=== PATIENT | male | born 1990 | race Caucasian/White ===

== ENCOUNTER 2019-08-31 10:32 | Emergency (ER) | payer OTHER, SELFPAY ==
[2019-08-31 10:44] VITALS: BP 114/74; PULSE 79; RESP 15; TEMP 36.9; O2SAT 100; BMI 17.9
[2019-08-31 11:44] LABS: Add Manual Diff / Slide Review NO; Basophils Absolute Auto 100 /uL (0-100); Basophils Percent Auto 0.9 % (0-2); Eosinophils Absolute Auto 0 /uL (0-450); Eosinophils Percent Auto 0.4 % (2-4); Hematocrit 44.8 % (41-53); Lymphocytes Absolute Auto 1800 /uL (1100-4500); Lymphocytes Percent Auto 30.4 % (25-40); Mean Corpuscular HGB Conc 35.7 % (30-36); Mean Corpuscular Hemoglobin 32.2 PG (26-34); Mean Corpuscular Volume 90.3 fL (80-100); Monocytes Absolute Auto 500 /uL (0-900); Monocytes Percent Auto 8.8 % (3-14); Neutrophils Absolute Auto 3600 /uL (1500-7000); Neutrophils Percent Auto 59.5 % (50-75); Platelet Count 188 X10^3/uL (150-400); Red Blood Cell Count 4.96 X10^6/uL (4.5-5.9); Red Cell Distribution Width 13.7 % (11.6-14.8)
[2019-08-31] MEDS: SODIUM CHLORIDE 0.9% 1,000 ML 1000 ML IV (11:44)
[2019-08-31] MEDS: ONDANSETRON 4 MG/2 ML INJ IV (11:44)
[2019-08-31 11:50] LABS: Prothrombin Time 11.2 SECONDS (10.1-12.7)
[2019-08-31 11:52] LABS: PTT Partial Thromboplastin Tim 34 SECONDS (26.4-36.2)
[2019-08-31 11:54] LABS: Alanine Aminotransferase 23 IU/L (21-72); Albumin 4.7 g/dL (3.5-5.0); Albumin Globulin Ratio 1.5 (1.0-2.8); Alkaline Phosphatase 68 U/L (38-126); Aspartate Aminotransferase 33 IU/L (17-59); Bilirubin Total 1.6 mg/dL (0.2-1.3); Blood Urea Nitrogen 7 mg/dL (9-20); Calcium 9.8 mg/dL (8.4-10.2); Carbon Dioxide 28 mmol/L (22-32); Chloride 103 mmol/L (98-107); Estimated Glomerular Filt Rate > 60.0 mL/min (>60); Globulin 3.2 g/dL (1.7-4.1); Glucose 87 mg/dL (70-100); HEMOLYSIS < 15 (0-50); Lipase 116 U/L (23-300); Sodium 142 mmol/L (137-145); Total Protein 7.9 g/dL (6.3-8.2)
[2019-08-31 12:03] LABS: Amylase 142 U/L (30-110)
--- NOTE | 2019-08-31 12:13 | ED_ITS ---
HPI - Abdominal Pain <CHICO Vega-BC - Last Filed: 08/31/19 16:39> General Chief Complaint: Abdominal Pain Stated Complaint: ABDOMINAL PAIN,NAUSEA Time Seen by Provider: 08/31/19 11:36 Source: patient Mode of arrival: Ambulatory Limitations: no limitations History of Present Illness HPI narrative: The patient is a 28-year-old male nonsmoker with history of ?stomach issues who presents with a chief complaint of left upper quadrant pain that started at 3:57 a.m. this morning. Patient states that he has a long history of stomach issues, has had multiple CTs with no definitive diagnosis. Has had an endoscopy. Patient states that he took Zofran this morning. Patient does not want narcotics. States that the pain is worse with eating. States that he had a gallbladder examination a few months ago. Does endorse some dysuria urgency and frequency. States prone to bladder infections. Patient is transgender and states that he has history of bilateral mastectomy, but still has a uterus. Denies any possibility of . Endorses diarrhea today. Related Data Home Medications Medication Instructions Recorded Confirmed clindamycin-benzoyl peroxide 1 applic TOPICAL DIRECTED 08/31/19 08/31/19 multivitamin 1 tab PO DAILY 08/31/19 08/31/19 testosterone [Fortesta] 1 pump TRANSDERMAL QPM 08/31/19 08/31/19 Previous Rx's Medication Instructions Recorded ketorolac 10 mg PO TID #30 tab 08/31/19 ondansetron 4 mg PO Q6H PRN #20 tab 08/31/19 Allergies Allergy/AdvReac Type Severity Reaction Status Date / Time fluoxetine [From [facility]] Allergy Verified 08/31/19 10:44 Penicillins Allergy Verified 08/31/19 10:44 Review of Systems <URIEL VegaBC - Last Filed: 08/31/19 16:39> Review of Systems Narrative: GENERAL: Denies chills, fatigue, malaise, fever, sweats. HEENT: Denies sinus pain, ear pain, sore throat, difficulty swallowing, dizziness. RESPIRATORY: Denies dyspnea, cough, wheezing, hemoptysis, sputum. CARDIOVASCULAR: Denies chest pain, palpitations, orthopnea, edema, GASTROINTESTINAL: See HPI : Denies dysuria, frequency, incontinence, hematuria, urinary retention. MUSCULOSKELETAL: denies weakness, joint pain, or bony pain SKIN: Denies rash, skin lesions, or other NEUROLOGIC: Denies weakness, headache, numbness, change in speech, confusion, seizures, incoordination. PSYCHIATRIC: No concerning psychosocial issues. 12 point review of systems is negative except for those stated above PFSH <CORTNEY Vega - Last Filed: 08/31/19 16:39> Surgical History (Updated 08/31/19 @ 12:15 by CORTNEY Vega) History of mastectomy (Acute) Social History Smoking Status: Never smoker Social History Smoking Status: Never smoker Exam <CORTNEY Vega - Last Filed: 08/31/19 16:39> Narrative Exam Narrative: GENERAL: This is a well-nourished, well-developed patient, appears uncomfortable HEAD: Atraumatic. Normocephalic. No temporal or scalp tenderness. EYES: Pupils equal round and reactive. Extraocular motions intact. No scleral icterus. No injection or drainage. ENT: Nose without bleeding, purulent drainage or septal hematoma. Throat without erythema, tonsillar hypertrophy or exudate. Uvula midline. Airway patent. NECK: Trachea midline. No JVD or lymphadenopathy. Supple, nontender, no men ingeal signs. CARDIOVASCULAR: Regular rate and rhythm without murmurs, gallops, or rubs. RESPIRATORY: Clear to auscultation. Breath sounds equal bilaterally. No wheezes, rales, or rhonchi. No cough. No increased respiratory effort. No accessory muscle use. GASTROINTESTINAL: Abdomen soft, slight tender to palpation left upper quadrant, nondistended. No hepato-splenomegaly, or palpable masses. No guarding. Active bowel sounds all 4 quadrants negative Sullivan sign. EXTREMITIES: No clubbing, cyanosis, or edema. No joint tenderness, effusion, or edema noted. BACK: Nontender without deformity or crepitance. No flank tenderness. NEURO: AOx3. SKIN: No rash or erythema. Initial Vital Signs Initial Vital Signs: Vital Signs Temperature 98.4 F 08/31/19 10:44 Pulse Rate 79 08/31/19 10:44 Respiratory Rate 15 09/30/19 10:44 Blood Pressure 114/74 08/31/19 10:44 Pulse Oximetry 100 08/31/19 10:44 <Sophia Quiñones DO - Last Filed: 09/03/19 07:06> Initial Vital Signs Initial Vital Signs: Vital Signs Temperature 98.4 F 08/31/19 10:44 Pulse Rate 79 08/31/19 10:44 Respiratory Rate 15 08/31/19 10:44 Blood Pressure 114/74 08/31/19 10:44 Pulse Oximetry 100 08/31/19 10:44 Course <CHICO Vega-CALEB - Last Filed: 08/31/19 16:39> Orders Ordered: Discontinued Medications Sodium Chloride (Normal Saline 0.9%) 1,000 mls @ 1,000 mls/hr IV BOLUS ONE Stop: 08/31/19 12:38 Last Infusion: 08/31/19 12:52 Dose: 0 mls/hr Documented by: Admin: 08/31/19 11:44 Dose: 1,000 mls/hr Documented by: ABIGAIL Ketorolac Tromethamine (Toradol) 30 mg IV NOW ONE Stop: 08/31/19 14:51 Last Admin: 08/31/19 15:10 Dose: 30 mg Documented by: ABIGAIL Ondansetron HCl (Zofran) 4 mg IV NOW ONE Stop: 08/31/19 11:40 Last Admin: 08/31/19 11:44 Dose: 4 mg Documented by: ABIGAIL Vital Signs Vital signs: Vital Signs - 8 hr 08/31/19 10:44 08/31/19 14:21 08/31/19 15:55 Temperature 98.4 F Pulse Rate 79 70 65 Respiratory Rate 15 14 12 Blood Pressure 114/74 Blood Pressure [Left Arm] 107/59 L 110/62 Pulse Oximetry 100 100 98 <Sophia Quiñones DO - Last Filed: 09/03/19 07:06> Orders Ordered: Discontinued Medications Sodium Chloride (Normal Saline 0.9%) 1,000 mls @ 1,000 mls/hr IV BOLUS ONE Stop: 08/31/19 12:38 Last Infusion: 08/31/19 12:52 Dose: 0 mls/hr Documented by: Admin: 08/31/19 11:44 Dose: 1,000 mls/hr Documented by: ABIGAIL Ketorolac Tromethamine (Toradol) 30 mg IV NOW ONE Stop: 08/31/19 14:51 Last Admin: 08/31/19 15:10 Dose: 30 mg Documented by: ABIGAIL Ondansetron HCl (Zofran) 4 mg IV NOW ONE Stop: 08/31/19 11:40 Last Admin: 08/31/19 11:44 Dose: 4 mg Documented by: ABIGAIL Vital Signs Vital signs: Vital Signs - 8 hr 08/31/19 10:44 08/31/19 14:21 08/31/19 15:55 Temperature 98.4 F Pulse Rate 79 70 65 Respiratory Rate 15 14 12 Blood Pressure 114/74 Blood Pressure [Left Arm] 107/59 L 110/62 Pulse Oximetry 100 100 98 MDM - Abdominal Pain <CHICO Vega- - Last Filed: 08/31/19 16:39> Lab Data Result diagrams: 08/31/19 11:34 08/31/19 11:34 Labs: Lab Results 08/31/19 08/31/19 08/31/19 Range/Units 11:30 11:34 11:34 WBC 6.0 (4.5-11.0) X10^3/uL RBC 4.96 (4.5-5.9) X10^6/uL Hgb 16.0 (13.5-17.5) g/dL Hct 44.8 (41-53) % MCV 90.3 (80-100) fL MCH 32.2 (26-34) PG MCHC 35.7 (30-36) % RDW 13.7 (11.6-14.8) % Plt Count 188 (150-400) X10^3/uL Neut % (Auto) 59.5 (50-75) % Lymph % (Auto) 30.4 (25-40) % Yell % (Auto) 8.8 (3-14) % Eos % (Auto) 0.4 L (2-4) % Baso % (Auto) 0.9 (0-2) % Neut # (Auto) 3600 (1659-7777) /uL Lymph # (Auto) 1800 (0648-1274) /uL Yell # (Auto) 500 (0-900) /uL Eos # (Auto) 0 (0-450) /uL Baso # (Auto) 100 (0-100) /uL PT 11.2 (10.1-12.7) SECONDS INR 1.0 (0.9-1.3) APTT 34 (26.4-36.2) SECONDS Sodium (137-145) mmol/L Potassium (3.4-5.1) mmol/L Chloride (98-107) mmol/L Carbon Dioxide (22-32) mmol/L BUN (9-20) mg/dL Creatinine (0.66-1.25) mg/dL Estimated GFR (>60) mL/min BUN/Creatinine Ratio (6-22) Glucose (70-100) mg/dL Calcium (8.4-10.2) mg/dL Total Bilirubin (0.2-1.3) mg/dL AST (17-59) IU/L ALT (21-72) IU/L Alkaline Phosphatase (38-126) U/L Total Protein (6.3-8.2) g/dL Albumin (3.5-5.0) g/dL Globulin (1.7-4.1) g/dL Albumin/Globulin Ratio (1.0-2.8) Amylase 142 H (30-110) U/L Lipase (23-300) U/L 08/31/19 Range/Units 11:34 WBC (4.5-11.0) X10^3/uL RBC (4.5-5.9) X10^6/uL Hgb (13.5-17.5) g/dL Hct (41-53) % MCV (80-100) fL MCH (26-34) PG MCHC (30-36) % RDW (11.6-14.8) % Plt Count (150-400) X10^3/uL Neut % (Auto) (50-75) % Lymph % (Auto) (25-40) % Yell % (Auto) (3-14) % Eos % (Auto) (2-4) % Baso % (Auto) (0-2) % Neut # (Auto) (0338-6082) /uL Lymph # (Auto) (8462-5404) /uL Yell # (Auto) (0-900) /uL Eos # (Auto) (0-450) /uL Baso # (Auto) (0-100) /uL PT (10.1-12.7) SECONDS INR (0.9-1.3) APTT (26.4-36.2) SECONDS Sodium 142 (137-145) mmol/L Potassium 4.0 (3.4-5.1) mmol/L Chloride 103 (98-107) mmol/L Carbon Dioxide 28 (22-32) mmol/L BUN 7 L (9-20) mg/dL Creatinine 0.70 (0.66-1.25) mg/dL Estimated GFR > 60.0 (>60) mL/min BUN/Creatinine Ratio 10.0 (6-22) Glucose 87 (70-100) mg/dL Calcium 9.8 (8.4-10.2) mg/dL Total Bilirubin 1.6 H (0.2-1.3) mg/dL AST 33 (17-59) IU/L ALT 23 (21-72) IU/L Alkaline Phosphatase 68 (38-126) U/L Total Protein 7.9 (6.3-8.2) g/dL Albumin 4.7 (3.5-5.0) g/dL Globulin 3.2 (1.7-4.1) g/dL Albumin/Globulin Ratio 1.5 (1.0-2.8) Amylase (30-110) U/L Lipase 116 (23-300) U/L Point of care testing: Point of Care Testing Test Results Negative Urine Dip Bedside Urine Glucose Negative Bedside Urine Bilirubin - Negative Bedside Urine Ketone - Negative Urine Specific [place] 1.015 Bedside Urine Occult Blood - Negative Bedside Urine pH 7.0 Bedside Urine Protein - Negative Bedside Urine Urobilinogen - Negative Bedside Urine Nitrite - Negative Bedside Urine Leukocytes - Negative Esterase Imaging Data US - abdomen: Radiologist's impression: [address] [address] Ultrasound Report Signed Patient: Tuan Orellana [facility]#: [id number] : 9Acct:[id number] Age/Sex: 82 / MDate of Service: 08/31/19 Loc: ED Accession Number: [id number] Procedure: US abdomen limited Ordering Provider: Akua Ladd PROCEDURE: US ABDOMEN LIMITED INDICATIONS: LEFT LOWER QUADRANT PAIN WITH ACTIVITY; POSSIBLE HERNIA TECHNIQUE: Real-time focused scanning was performed of the abdomen, with image documentation. COMPARISON: None. FINDINGS: Targeted sonographic imaging at the site of the patient's area of concern was performed within the left lower quadrant. No cystic or solid abnormality is identified within this region. No bowel or large fat containing mesenteric hernias are appreciated. No enlarged lymph nodes are identified. IMPRESSION: No evidence of a hernia within the left lower quadrant. Dictated by: Dm Patel M.D. on 08/31/2019 at 12:17 Approved by: Dm Patel M.D. on 08/31/2019 at 12:17 CT scan - abdomen: Radiologist's impression: [address] [address] [address] Scan Report Signed Patient: Ernesto Toribio [facility]#: [id number] : 1990Acct:[id number] Age/Sex: MDate of Service: 08/31/19 Loc: ED Accession Number: [id number] Procedure: CT abdomen pelvis w con Ordering Provider: Akua Ladd PROCEDURE: CT ABDOMEN PELVIS W CON INDICATIONS: Left flank pain for a few weeks TECHNIQUE: After the administration of intravenous contrast, 5 mm thick sections acquired from the diaphragms to the symphysis. 5 mm thick coronal and sagittal reformats were performed. For radiation dose reduction, the following was used: automated exposure control, adjustment of mA and/or kV according to patient size. COMPARISON: None. FINDINGS: Image quality: Excellent. ABDOMEN: Lung bases: Lung bases are clear. Heart size is normal. Solid organs: Liver is normal in size and enhancement. Diffuse fatty infiltration of the liver. Gallbladder is within normal limits. Biliary system is non-dilated. Pancreas enhances normally. Spleen is normal in size and enhancement. No adrenal nodules. Kidneys are normal in size and enhancement, without hydronephrosis. Peritoneum and bowel: Stomach, small bowel, and colon loops are normal in caliber and wall thickness. No free fluid or air. Nodes and vessels: No retroperitoneal or mesenteric adenopathy. Aorta and i nferior vena cava are normal in caliber. Miscellaneous: No ventral hernias. PELVIS: Genitourinary: Bladder wall thickness is normal. 3.2 cm right adnexal cyst. Miscellaneous: No inguinal hernias or adenopathy. Bones: No suspicious bony lesions. No vertebral body compression fractures. Approximate 12? of convex left lumbar spine curvature. IMPRESSION: 1. 3.2 cm left adnexal cyst. Recommend pelvic ultrasound for definitive characterization and to exclude ovarian torsion. 2. Mild convex left lumbar spine scoliosis. 3. Mild hepatic steatosis. 4. No free fluid or free air. 5. No dilated loops of bowel. Dictated by: Saloni Escalante MD, PhD on 08/31/2019 at 13:18 Approved by: Saloni Escalante MD, PhD on 08/31/2019 at 13:30 [facility] Narrative Medical decision making narrative: The patient is a 28-year-old male who presents with a chief complaint of left-sided abdominal pain. Given the patient's pain and guarding on exam, I did obtain a CT scan was illustrated an adnexal cyst as the patient is a female to male transgender individual. Ultrasound ruled out ovarian torsion. The patient has normal UA, no leukocytosis. Has been afebrile nontoxic appearing throughout his stay in the emergency department. CT scan was used to rule out small-bowel obstruction diverticulitis appendicitis etc. It is reassuring that the patient does not have any signs of systemic illness. Encourage PCP follow-up. Given prescription of Toradol as well as Zofran. Discussed coming back to the emergency department for any acute concerns such as chest pain, shortness of breath etc. Encourage PCP follow-up in the next few days. Patient has no questions or concerns states understanding of plan, return precautions and follow-up care. <Sophia Quiñones, DO - Last Filed: 09/03/19 07:06> Lab Data Labs: Lab Results 08/31/19 08/31/19 08/31/19 Range/Units 11:30 11:34 11:34 WBC 6.0 (4.5-11.0) X10^3/uL RBC 4.96 (4.5-5.9) X10^6/uL Hgb 16.0 (13.5-17.5) g/dL Hct 44.8 (41-53) % MCV 90.3 (80-100) fL MCH 32.2 (26-34) PG MCHC 35.7 (30-36) % RDW 13.7 (11.6-14.8) % Plt Count 188 (150-400) X10^3/uL Neut % (Auto) 59.5 (50-75) % Lymph % (Auto) 30.4 (25-40) % Yell % (Auto) 8.8 (3-14) % Eos % (Auto) 0.4 L (2-4) % Baso % (Auto) 0.9 (0-2) % Neut # (Auto) 3600 (0618-4392) /uL Lymph # (Auto) 1800 (2584-3363) /uL Yell # (Auto) 500 (0-900) /uL Eos # (Auto) 0 (0-450) /uL Baso # (Auto) 100 (0-100) /uL PT 11.2 (10.1-12.7) SECONDS INR 1.0 (0.9-1.3) APTT 34 (26.4-36.2) SECONDS Sodium (137-145) mmol/L Potassium (3.4-5.1) mmol/L Chloride (98-107) mmol/L Carbon Dioxide (22-32) mmol/L BUN (9-20) mg/dL Creatinine (0.66-1.25) mg/dL Estimated GFR (>60) mL/min BUN/Creatinine Ratio (6-22) Glucose (70-100) mg/dL Calcium (8.4-10.2) mg/dL Total Bilirubin (0.2-1.3) mg/dL AST (17-59) IU/L ALT (21-72) IU/L Alkaline Phosphatase (38-126) U/L Total Protein (6.3-8.2) g/dL Albumin (3.5-5.0) g/dL Globulin (1.7-4.1) g/dL Albumin/Globulin Ratio (1.0-2.8) Amylase 142 H (30-110) U/L Lipase (23-300) U/L 08/31/19 Range/Units 11:34 WBC (4.5-11.0) X10^3/uL RBC (4.5-5.9) X10^6/uL Hgb (13.5-17.5) g/dL Hct (41-53) % MCV (80-100) fL MCH (26-34) PG MCHC (30-36) % RDW (11.6-14.8) % Plt Count (150-400) X10^3/uL Neut % (Auto) (50-75) % Lymph % (Auto) (25-40) % Yell % (Auto) (3-14) % Eos % (Auto) (2-4) % Baso % (Auto) (0-2) % Neut # (Auto) (7086-0279) /uL Lymph # (Auto) (0398-3342) /uL Yell # (Auto) (0-900) /uL Eos # (Auto) (0-450) /uL Baso # (Auto) (0-100) /uL PT (10.1-12.7) SECONDS INR (0.9-1.3) APTT (26.4-36.2) SECONDS Sodium 142 (137-145) mmol/L Potassium 4.0 (3.4-5.1) mmol/L Chloride 103 (98-107) mmol/L Carbon Dioxide 28 (22-32) mmol/L BUN 7 L (9-20) mg/dL Creatinine 0.70 (0.66-1.25) mg/dL Estimated GFR > 60.0 (>60) mL/min BUN/Creatinine Ratio 10.0 (6-22) Glucose 87 (70-100) mg/dL Calcium 9.8 (8.4-10.2) mg/dL Total Bilirubin 1.6 H (0.2-1.3) mg/dL AST 33 (17-59) IU/L ALT 23 (21-72) IU/L Alkaline Phosphatase 68 (38-126) U/L Total Protein 7.9 (6.3-8.2) g/dL Albumin 4.7 (3.5-5.0) g/dL Globulin 3.2 (1.7-4.1) g/dL Albumin/Globulin Ratio 1.5 (1.0-2.8) Amylase (30-110) U/L Lipase 116 (23-300) U/L Point of care testing: Point of Care Testing Test Results Negative Urine Dip Bedside Urine Glucose Negative Bedside Urine Bilirubin - Negative Bedside Urine Ketone - Negative Urine Specific [place] 1.015 Bedside Urine Occult Blood - Negative Bedside Urine pH 7.0 Bedside Urine Protein - Negative Bedside Urine Urobilinogen - Negative Bedside Urine Nitrite - Negative Bedside Urine Leukocytes - Negative Esterase Discharge Plan Departure Patient Disposition: Home Clinical Impression: Abdominal pain Qualifiers: Abdominal location: left upper quadrant Qualified Code(s): R10.12 - Left upper quadrant pain Discharge Date/Time: 08/31/19 16:08 Instructions: DI for Ovarian Cyst, DI for Abdominal Pain-Adult Activity Restrictions/Additional Instructions: Your workup today found an ovarian cyst. Please follow up with primary care provider. You may benefit from an OBGYN referral. I have given her prescription of Toradol. Do not combine this with ibuprofen Aleve or any other NSAIDs Please use heat as needed and able. Please come back to the emergency department for any acute concerns such as chest pain, shortness of breath, and we keep down fluids etc Prescriptions: New ketorolac 10 mg tablet 10 mg PO TID Qty: 30 RF: 0 ondansetron 4 mg tablet,disintegrating 4 mg PO Q6H PRN (Reason: nausea and vomiting) Qty: 20 RF: 0 No Action clindamycin-benzoyl peroxide 1-5 % gel 1 applic TOPICAL DIRECTED RF: 0 testosterone [Fortesta] 10 mg/0.5 gram /actuation gel in metered-dose pump 1 pump transdermal QPM RF: 0 multivitamin Tablet 1 tab PO DAILY RF: 0 Referrals: Zuhair Brunner [Primary Care Provider] - Stand Alone Forms: Work Release Note
--- NOTE | 2019-08-31 13:00 | DI.CT.S_ITS ---
PROCEDURE: CT ABDOMEN PELVIS W CON INDICATIONS: Left flank pain for a few weeks TECHNIQUE: After the administration of intravenous contrast, 5 mm thick sections acquired from the diaphragms to the symphysis. 5 mm thick coronal and sagittal reformats were performed. For radiation dose reduction, the following was used: automated exposure control, adjustment of mA and/or kV according to patient size. COMPARISON: None. FINDINGS: Image quality: Excellent. ABDOMEN: Lung bases: Lung bases are clear. Heart size is normal. Solid organs: Liver is normal in size and enhancement. Diffuse fatty infiltration of the liver. Gallbladder is within normal limits. Biliary system is non-dilated. Pancreas enhances normally. Spleen is normal in size and enhancement. No adrenal nodules. Kidneys are normal in size and enhancement, without hydronephrosis. Peritoneum and bowel: Stomach, small bowel, and colon loops are normal in caliber and wall thickness. No free fluid or air. Nodes and vessels: No retroperitoneal or mesenteric adenopathy. Aorta and inferior vena cava are normal in caliber. Miscellaneous: No ventral hernias. PELVIS: Genitourinary: Bladder wall thickness is normal. 3.2 cm right adnexal cyst. Miscellaneous: No inguinal hernias or adenopathy. Bones: No suspicious bony lesions. No vertebral body compression fractures. Approximate 12? of convex left lumbar spine curvature. IMPRESSION: 1. 3.2 cm left adnexal cyst. Recommend pelvic ultrasound for definitive characterization and to exclude ovarian torsion. 2. Mild convex left lumbar spine scoliosis. 3. Mild hepatic steatosis. 4. No free fluid or free air. 5. No dilated loops of bowel. Dictated by: Saloni Escalante MD, PhD on 08/31/2019 at 13:18 Approved by: Saloni Escalante MD, PhD on 08/31/2019 at 13:30
--- NOTE | 2019-08-31 13:44 | DI.US.S_ITS ---
PROCEDURE: US PELVIC COMPLETE INDICATIONS: OVARIAN CYST RULE OUT TORSION TECHNIQUE: Real-time scanning was performed of the pelvic organs, with image documentation. Additional endovaginal scanning was necessary due to incomplete visualization of the adnexal and endometrial structures by transabdominal scanning. COMPARISON: [facility], CT, CT ABDOMEN PELVIS W CON, 08/31/2019, 13:03. FINDINGS: Transabdominal scanning: Limited scanning through the kidneys shows no hydronephrosis. No pathologic free abdominal or pelvic fluid. Endovaginal scanning: Uterus: Uterus is normal in size at 10.6 x 3.4 x 4.3 cm. The endometrium measures 5 mm in combined thickness. Ovaries: Right ovary: 3.1 x 2.3 x 2.8 cm. The right ovary contains a 3.0 x 2.2 x 2.5 cm cystic structure with mural nodularity which most likely represents a small amount of clot within the cyst. There is normal flow in the right ovary. Left ovary: 2.9 x 1.3 x 1.3 cm, with normal flow. IMPRESSION: 1. Findings are consistent with a hemorrhagic right ovarian cyst. 2. No evidence of ovarian torsion. 3. No other significant findings. Dictated by: John Sung M.D. on 08/31/2019 at 15:01 Approved by: John Sung M.D. on 08/31/2019 at 15:05
[2019-08-31 14:21] VITALS: BP 107/59; PULSE 70; RESP 14; O2SAT 100
[2019-08-31] MEDS: KETOROLAC 60 MG/2 ML VIAL 30 MG IV (15:10)
[2019-08-31 15:55] VITALS: BP 110/62; PULSE 65; RESP 12; O2SAT 98
== END 2019-08-31 16:08 | disposition home or self-care (01) ==
PROVIDERS: Emergency Medicine; Emergency Provider Nurse Practitioner Family; PCP Family Medicine
DX: R10.12 Left upper quadrant pain (principal)
CPT/HCPCS: 36415; 74177; 76830; 76856; 80053; 81003; 81025; 82150; 83690; 85025; 85610; 85730; 93005; 96361; 96374; 96375; 99283; 99285; J1885; J2405

== ENCOUNTER 2019-12-10 03:57 | Emergency (ER) | payer OTHER, SELFPAY ==
[2019-12-10 04:02] VITALS: BP 103/76; PULSE 82; RESP 20; TEMP 36.8; O2SAT 98
--- NOTE | 2019-12-10 04:10 | DI.CT.S_ITS ---
PROCEDURE: CT KIDNEY URETER BLADDER (KUB) INDICATIONS: Left sided pain ,eval for kidney stone TECHNIQUE: Noncontrast 5 mm thick sections acquired from the diaphragms to the symphysis. 5 mm thick coronal and sagittal reformats were then performed. For radiation dose reduction, the following was used: automated exposure control, adjustment of mA and/or kV according to patient size. COMPARISON: [facility], US, US PELVIC COMPLETE, 08/31/2019, 14:18. [facility], CT, CT ABDOMEN PELVIS W CON, 08/31/2019, 13:03. FINDINGS: Image quality: Excellent. Lung bases: Lung bases are clear. Heart size is normal. Urinary system: Both kidneys are normal in size. No kidney stones. No hydronephrosis or perinephric fat stranding. Both ureters appear non-dilated throughout their expected courses. Bladder wall thickness is normal; no calcified bladder stones. Other solid organs: Liver is normal in size. Gallbladder is normal. Pancreas is normal in contours. Spleen is normal in size. No adrenal nodules. Peritoneum and bowel: Unenhanced bowel loops demonstrate normal wall thickness and caliber. The appendix is not definitively identified. There is a moderate amount of stool in colon. No free fluid or air. Nodes and vessels: No retroperitoneal or mesenteric adenopathy by size criteria. Aorta and inferior vena cava are normal in caliber. Abdominal wall: No ventral hernias. Pelvis: No free pelvic fluid. No inguinal hernias or adenopathy. Uterus is normal. No adnexal mass. Bones: No suspicious bony lesions. No vertebral body compression fractures. Mild levoscoliosis which IMPRESSION: 1. No renal stone hydronephrosis. 2. No acute intra-abdominal/pelvic process. No significant discrepancy with the caustic cresylate shift superintendent radiology preliminary report. Dictated by: Doyle Torres M.D. on 12/10/2019 at 7:25 Approved by: Doyle Torres M.D. on 12/10/2019 at 7:32
[2019-12-10] MEDS: KETOROLAC 60 MG/2 ML VIAL 30 MG IV (04:16)
[2019-12-10 04:18] LABS: Appearance Urine UA CLOUDY; Bilirubin Urine UA NEGATIVE (NEGATIVE); Glucose Urine UA NEGATIVE (Negative); Ketones Urine UA NEGATIVE (NEGATIVE); Leukocyte Esterase Urine UA 2+ (NEGATIVE); Nitrite Urine UA POSITIVE (Negative); Occult Blood Urine UA 3+ (Negative); Protein Urine UA 3+ (Negative); Specific Gravity Urine UA 1.025 (1.000-1.035); pH Urine UA 6.5 (4.5-8.0)
[2019-12-10 04:20] LABS: Color Urine UA Light Brown
--- NOTE | 2019-12-10 04:29 | ED_ITS ---
HPI - General Adult General Chief complaint: Abdominal Pain Stated complaint: Painful urnination/bloody urine Time Seen by Provider: 12/10/19 03:59 Source: patient Mode of arrival: Ambulatory Limitations: no limitations History of Present Illness HPI narrative: Patient is a 29-year-old female who identifies as a male who has had a mastectomy however still is female pelvic organs here for evaluation of blood in his urine, urinary frequency, dysuria and lower back pain. No fevers. No nausea vomiting. Patient states that the pain woke him up several hours prior to arrival here in the ER. He has had a urinary tract infection in the past but that was many years ago. No history of kidney stones. Related Data Home Medications Medication Instructions Recorded Confirmed clindamycin-benzoyl peroxide 1 applic TOPICAL DIRECTED 08/31/19 08/31/19 multivitamin 1 tab PO DAILY 08/31/19 08/31/19 testosterone [Fortesta] 1 pump TRANSDERMAL QPM 08/31/19 08/31/19 Previous Rx's Medication Instructions Recorded ketorolac 10 mg PO TID #30 tab 08/31/19 ondansetron 4 mg PO Q6H PRN #20 tab 08/31/19 cephalexin [Keflex] 500 mg PO BID 7 Days #13 cap 12/10/19 phenazopyridine [Pyridium] 100 mg PO TID PRN #6 tab 12/10/19 Allergies Allergy/AdvReac Type Severity Reaction Status Date / Time fluoxetine [From Prozac] Allergy Verified 08/31/19 10:44 Penicillins Allergy Verified 08/31/19 10:44 Review of Systems Constitutional Constitutional: Denies fever(s) and Denies headache(s) ENT Ears, Nose, Mouth, and Throat: Denies headache(s) Cardiovascular Cardiovascular: Denies chest pain and Denies dyspnea Respiratory Respiratory: Denies dyspnea Gastrointestinal Gastrointestinal: Reports abdominal pain, Denies change in stool character, Denies nausea and Denies vomiting Genitourinary Genitourinary: Reports hematuria, Reports dysuria, Reports urinary frequency, Reports urinary hesitancy and Reports urinary urgency Musculoskeletal Musculoskeletal: Denies arthralgias Integumentary/Breasts Skin/Breast: Denies rash Neurologic Neurologic: Denies behavioral changes and Denies headache(s) Psychiatric Psychiatric: Denies behavioral changes Hematologic/Lymphatic Hematologic/Lymphatic: Denies easy bleeding and Denies easy bruising Patient History Medical History [id number] transgender person (Inactive) Surgical History (Updated 08/31/19 @ 12:15 by CHICO Vega-) History of mastectomy (Acute) Social History Smoking Status: Never smoker Smoking Status: Never smoker Substance Use Type: does not use Exam Initial Vital Signs Initial Vital Signs: Vital Signs Temperature 98.2 F 12/10/19 04:02 Pulse Rate 82 12/10/19 04:02 Respiratory Rate 20 12/10/19 04:02 Blood Pressure 103/76 12/10/19 04:02 Pulse Oximetry 98 12/10/19 04:02 Const General: cooperative, comfortable and well developed Limitations: mental status not altered HENMT Head: normal to inspection and normocephalic Resp Effort & Inspection: normal respiratory effort Auscultation: clear to auscultation bilaterally Cardio Rate: regular rate Rhythm: regular rhythm GI Inspection: non-distended Palpation: soft, No firm and tender (Lower abdomen) Back/Spine/Pelvis Back: No CVA tenderness Skin Lesions: no lesions Rashes: no rashes Neuro General: alert and awake Cognition: normal cognition Speech: speech normal Extrem General: normal to inspection and capillary refill normal Psych Appearance: grossly normal and well kempt Course Orders Ordered: ED Orders 12/10/19 04:05 Urinalysis and Microscopic Stat Urine Culture Stat 12/10/19 04:10 CT kidney ureter bladder (KUB) Stat 12/10/19 04:15 Basic Metabolic Panel Stat Complete Blood Count AUTO DIFF Stat HCG Quantitative Stat Discontinued Medications Cephalexin HCl (Keflex) 500 mg PO NOW ONE Stop: 12/10/19 05:23 Last Admin: 12/10/19 05:25 Dose: 500 mg Documented by: CARRIE Ketorolac Tromethamine (Toradol) 30 mg IV NOW ONE Stop: 12/10/19 04:10 Last Admin: 12/10/19 04:16 Dose: 30 mg Documented by: CARRIE Phenazopyridine HCl (Pyridium) 100 mg PO NOW ONE Stop: 12/10/19 05:23 Last Admin: 12/10/19 05:25 Dose: 100 mg Documented by: CARRIE Vital Signs Vital signs: Vital Signs - 8 hr 12/10/19 04:02 12/10/19 05:42 Temperature 98.2 F Pulse Rate 82 76 Respiratory Rate 20 18 Blood Pressure 103/76 95/70 Pulse Oximetry 98 98 Medical Decision Making Medical Records Medical records reviewed: Yes I reviewed the patient's medical records. Lab Data Lab results reviewed: Yes I reviewed the patient's lab results. Result diagrams: 12/10/19 04:15 12/10/19 04:15 Labs: Lab Results 12/10/19 12/10/19 12/10/19 Range/Units 04:05 04:15 04:15 WBC 10.8 (4.5-11.0) X10^3/uL RBC 5.30 (4.5-5.9) X10^6/uL Hgb 16.6 (13.5-17.5) g/dL Hct 48.3 (41-53) % MCV 91.2 (80-100) fL MCH 31.4 (26-34) PG MCHC 34.4 (30-36) % RDW 13.4 (11.6-14.8) % Plt Count 204 (150-400) X10^3/uL Neut % (Auto) 64.7 (50-75) % Lymph % (Auto) 28.9 (25-40) % [place] % (Auto) 4.7 (3-14) % Eos % (Auto) 1.1 L (2-4) % Baso % (Auto) 0.6 (0-2) % Neut # (Auto) 7000 (5876-6573) /uL Lymph # (Auto) 3100 (1787-3053) /uL [place] # (Auto) 500 (0-900) /uL Eos # (Auto) 100 (0-450) /uL Baso # (Auto) 100 (0-100) /uL Sodium 141 (137-145) mmol/L Potassium 4.0 (3.4-5.1) mmol/L Chloride 104 (98-107) mmol/L Carbon Dioxide 28 (22-32) mmol/L BUN 13 (9-20) mg/dL Creatinine 0.90 (0.66-1.25) mg/dL Estimated GFR > 60.0 (>60) mL/min BUN/Creatinine Ratio 14.4 (6-22) Glucose 90 (70-100) mg/dL Calcium 9.4 (8.4-10.2) mg/dL HCG, Quant (-2.40) mIU/mL Urine Color Light brown Urine Appearance Cloudy Urine pH 6.5 (4.5-8.0) Ur Specific [place] 1.025 (1.000-1.035) Urine Protein 3+ H (Negative) Urine Glucose (UA) Negative (Negative) g/dL Urine Ketones Negative (NEGATIVE) Urine Occult Blood 3+ H (Negative) Urine Nitrate Positive (Negative) Urine Bilirubin Negative (NEGATIVE) Urine Urobilinogen 1.0 (0.2) E.U./dL Ur Leukocyte Esterase 2+ H (NEGATIVE) Urine RBC >100/hpf (0-5/HPF) Urine WBC 10-30/hpf H (0-5/HPF) Urine Bacteria Moderate (10-30) H (None) Ur Culture Indicated? Specimen cultured 12/10/19 Range/Units 04:15 WBC (4.5-11.0) X10^3/uL RBC (4.5-5.9) X10^6/uL Hgb (13.5-17.5) g/dL Hct (41-53) % MCV (80-100) fL MCH (26-34) PG MCHC (30-36) % RDW (11.6-14.8) % Plt Count (150-400) X10^3/uL Neut % (Auto) (50-75) % Lymph % (Auto) (25-40) % [place] % (Auto) (3-14) % Eos % (Auto) (2-4) % Baso % (Auto) (0-2) % Neut # (Auto) (7731-0675) /uL Lymph # (Auto) (1684-9132) /uL [place] # (Auto) (0-900) /uL Eos # (Auto) (0-450) /uL Baso # (Auto) (0-100) /uL Sodium (137-145) mmol/L Potassium (3.4-5.1) mmol/L Chloride (98-107) mmol/L Carbon Dioxide (22-32) mmol/L BUN (9-20) mg/dL Creatinine (0.66-1.25) mg/dL Estimated GFR (>60) mL/min BUN/Creatinine Ratio (6-22) Glucose (70-100) mg/dL Calcium (8.4-10.2) mg/dL HCG, Quant < 2.39 (-2.40) mIU/mL Urine Color Urine Appearance Urine pH (4.5-8.0) Ur Specific [place] (1.000-1.035) Urine Protein (Negative) Urine Glucose (UA) (Negative) g/dL Urine Ketones (NEGATIVE) Urine Occult Blood (Negative) Urine Nitrate (Negative) Urine Bilirubin (NEGATIVE) Urine Urobilinogen (0.2) E.U./dL Ur Leukocyte Esterase (NEGATIVE) Urine RBC (0-5/HPF) Urine WBC (0-5/HPF) Urine Bacteria (None) Ur Culture Indicated? Imaging Data CT scan - abdomen/pelvis: Radiologist's Impression: Unremarkable noncontrast CT of abdomen and pelvis MDM Narrative Medical decision making narrative: Urinalysis nitrite positive. Consistent with a urinary tract infection. CT scan shows no signs of kidney stone. She is afebrile. Does not have an elevated white blood cell count. Does not have CVA tenderness. No nausea and vomiting. Suspect this is a lower UTI. Was given 1st dose of antibiotics here in the ER with Pyridium for symptom control. Sent home with a prescription for these medications. Was given return precautions an d follow-up instructions. Expressed understanding and agreement with plan. Discharge Plan Departure Patient Disposition: Home Clinical Impression: Urinary tract infection Qualifiers: Urinary tract infection type: acute cystitis Hematuria presence: with hematuria Qualified Code(s): N30.01 - Acute cystitis with hematuria Discharge Date/Time: 12/10/19 05:44 Instructions: DI for Urinary Tract Infection (UTI) Activity Restrictions/Additional Instructions: Take the antibiotics as directed. The peridium you can use as needed for discomfort with urination. Contact your primary provider for follow-up. Return to the emergency department for any new or worsening symptoms Prescriptions: New phenazopyridine [Pyridium] 100 mg tablet 100 mg PO TID PRN (Reason: pain) Qty: 6 RF: 0 cephalexin [Keflex] 500 mg capsule 500 mg PO BID 7 Days Qty: 13 RF: 0 No Action clindamycin-benzoyl peroxide 1-5 % gel 1 applic TOPICAL DIRECTED RF: 0 testosterone [Fortesta] 10 mg/0.5 gram /actuation gel in metered-dose pump 1 pump transdermal QPM RF: 0 multivitamin Tablet 1 tab PO DAILY RF: 0 ketorolac 10 mg tablet 10 mg PO TID Qty: 30 RF: 0 ondansetron 4 mg tablet,disintegrating 4 mg PO Q6H PRN (Reason: nausea and vomiting) Qty: 20 RF: 0 Referrals: Zuhair Brunner [Primary Care Provider] -
[2019-12-10 04:34] LABS: Bacteria Urine Moderate (10-30); Culture Indicated Urine Specimen Cultured; RBC Urine >100/HPF (0-5/HPF); WBC Urine 10-30/HPF (0-5/HPF)
[2019-12-10 04:34] LABS: Add Manual Diff / Slide Review NO; Basophils Absolute Auto 100 /uL (0-100); Basophils Percent Auto 0.6 % (0-2); Eosinophils Absolute Auto 100 /uL (0-450); Eosinophils Percent Auto 1.1 % (2-4); Hematocrit 48.3 % (41-53); Hemoglobin 16.6 g/dL (13.5-17.5); Lymphocytes Absolute Auto 3100 /uL (1100-4500); Lymphocytes Percent Auto 28.9 % (25-40); Mean Corpuscular HGB Conc 34.4 % (30-36); Mean Corpuscular Hemoglobin 31.4 PG (26-34); Mean Corpuscular Volume 91.2 fL (80-100); Monocytes Absolute Auto 500 /uL (0-900); Monocytes Percent Auto 4.7 % (3-14); Neutrophils Absolute Auto 7000 /uL (1500-7000); Neutrophils Percent Auto 64.7 % (50-75); Platelet Count 204 X10^3/uL (150-400); Red Cell Distribution Width 13.4 % (11.6-14.8); White Blood Cell Count 10.8 X10^3/uL (4.5-11.0)
[2019-12-10 04:37] LABS: BUN Creatinine Ratio 14.4 (6-22); Blood Urea Nitrogen 13 mg/dL (9-20); Calcium 9.4 mg/dL (8.4-10.2); Carbon Dioxide 28 mmol/L (22-32); Chloride 104 mmol/L (98-107); Estimated Glomerular Filt Rate > 60.0 mL/min (>60); Glucose 90 mg/dL (70-100); HEMOLYSIS 21 (0-50); Sodium 141 mmol/L (137-145)
[2019-12-10 05:11] LABS: HCG Quantitative /Beta subunit < 2.39 mIU/mL (-2.40)
[2019-12-10] MEDS: PHENAZOPYRIDINE 100 MG TABLET PO (05:25)
[2019-12-10] MEDS: cephALEXin 250 MG CAPSULE 500 MG PO (05:25)
[2019-12-10 05:42] VITALS: BP 95/70; PULSE 76; RESP 18; O2SAT 98
== END 2019-12-10 05:44 | disposition home or self-care (01) ==
PROVIDERS: Emergency Provider Emergency Medicine; PCP Family Medicine
DX: N30.01 Acute cystitis with hematuria (principal); R10.9 Unspecified abdominal pain
CPT/HCPCS: 36415; 74176; 80048; 81001; 84702; 85025; 87077; 87086; 87186; 96374; 99284; J1885

== ENCOUNTER 2019-12-31 12:34 | Emergency (ER) | payer OTHER, SELFPAY ==
[2019-12-31 13:13] VITALS: BP 112/79; PULSE 75; RESP 16; TEMP 36.7; O2SAT 99; BMI 17.9
[2019-12-31 15:46] LABS: Add Manual Diff / Slide Review NO; Basophils Absolute Auto 0 /uL (0-100); Basophils Percent Auto 0.9 % (0-2); Eosinophils Absolute Auto 0 /uL (0-450); Eosinophils Percent Auto 0.5 % (2-4); Hematocrit 46.5 % (41-53); INR 1.1 (0.9-1.3); Lymphocytes Absolute Auto 1700 /uL (1100-4500); Lymphocytes Percent Auto 31.4 % (25-40); Mean Corpuscular HGB Conc 34.4 % (30-36); Mean Corpuscular Hemoglobin 30.8 PG (26-34); Mean Corpuscular Volume 89.7 fL (80-100); Monocytes Absolute Auto 400 /uL (0-900); Monocytes Percent Auto 7.7 % (3-14); Neutrophils Absolute Auto 3300 /uL (1500-7000); Neutrophils Percent Auto 59.5 % (50-75); Platelet Count 188 X10^3/uL (150-400); Red Blood Cell Count 5.18 X10^6/uL (4.5-5.9); Red Cell Distribution Width 13.1 % (11.6-14.8); White Blood Cell Count 5.5 X10^3/uL (4.5-11.0)
[2019-12-31 15:49] LABS: PTT Partial Thromboplastin Tim 35 SECONDS (26.4-36.2)
[2019-12-31 15:50] LABS: Alanine Aminotransferase 12 IU/L (<50); Albumin 4.7 g/dL (3.5-5.0); Albumin Globulin Ratio 1.3 (1.0-2.8); Alkaline Phosphatase 57 U/L (38-126); Aspartate Aminotransferase 31 IU/L (17-59); Bilirubin Total 3.9 mg/dL (0.2-1.3); Blood Urea Nitrogen 12 mg/dL (9-20); Calcium 9.6 mg/dL (8.4-10.2); Carbon Dioxide 27 mmol/L (22-32); Chloride 101 mmol/L (98-107); Estimated Glomerular Filt Rate > 60.0 mL/min (>60); Globulin 3.5 g/dL (1.7-4.1); Glucose 125 mg/dL (70-100); HEMOLYSIS 44 (0-50); Lipase 85 U/L (23-300); Potassium 4.3 mmol/L (3.4-5.1); Sodium 138 mmol/L (137-145); Total Protein 8.2 g/dL (6.3-8.2)
--- NOTE | 2019-12-31 17:36 | DI.US.S_ITS ---
PROCEDURE: US ABDOMEN LIMITED INDICATIONS: R FLANK/RUQ PAIN, R/O HYDRONEPHROSIS AND GALLSTONES TECHNIQUE: Real-time scanning was performed of the abdominal and retroperitoneal organs, with image documentation. COMPARISON: [facility], CT, CT KIDNEY URETER BLADDER (KUB), 12/10/2019, 4:10. [facility], CT, CT ABDOMEN PELVIS W CON, 08/31/2019, 13:03. FINDINGS: Liver: Liver is normal in size and homogeneous in echotexture. Gallbladder: Nondilated. No stones or sludge. Normal gallbladder wall thickness. No pericholecystic fluid. Negative sonographic Sullivan's sign. Biliary ducts: Intrahepatic bile ducts are non-dilated. Extrahepatic bile duct caliber measures 3 mm. Normal is 6-7 mm or less in diameter, or 10 mm or less post-cholecystectomy. Pancreas: Visualized portions of the pancreas are sonographically normal. Kidneys: Kidneys are normal in size and echotexture. Right kidney measures 9.5 cm long; left kidney measures 9.4 cm long. No hydronephrosis or nephrolithiasis. No solid masses. IMPRESSION: 1. No acute cholecystitis. No gallstones. 2. No hydronephrosis. Dictated by: Derek Zurita M.D. on 12/31/2019 at 20:05 Approved by: Derek Zurita M.D. on 12/31/2019 at 20:07
--- NOTE | 2019-12-31 17:44 | ED_ITS ---
HPI - Male Genitourinary <Norma BetancourtWESTON - Last Filed: 12/31/19 21:40> General Chief complaint: Urogenital-Male Stated complaint: pain in mid back area Time Seen by Provider: 12/31/19 17:00 Source: patient Mode of arrival: Ambulatory History of Present Illness HPI Narrative: 29-year-old who has female pelvic organs but is transitioning to male, currently identifies as male, has a history of a right ovarian cyst and Gilbert's syndrome, presents to the emergency department complaining of right flank pain for the past few weeks. Patient states she was seen on 12/10/2019 and diagnosed with a urinary tract infection. She had a CT at this time that showed no renal stones or hydronephrosis. Patient was given cephalexin, she states her symptoms improved. However a week later she began to have symptoms again, she was seen at the [email or web address] [facility] and given Levaquin. She finished her last dose of Levaquin yesterday and continues to have right flank pain and nausea. Patient states he has noticed chest pressure and shortness of breath over the past week. He states this has worsened over the past few days. Patient reports the symptoms are slightly increased with exertion. Patient denies any coughing, rhinorrhea, sore throat, fevers, chills, vomiting, diarrhea, constipation, dizziness, or other concerns. Patient denies any recent long trips or history of blood clots. However, patient states he is taking testosterone. Related Data Home Medications Medication Instructions Recorded Confirmed clindamycin-benzoyl peroxide 1 applic TOPICAL DIRECTED 08/31/19 12/31/19 multivitamin 1 tab PO DAILY 08/31/19 12/31/19 testosterone [Fortesta] 1 pump TRANSDERMAL QPM 08/31/19 12/31/19 adapalene 1 applic TOPICAL BEDTIME 12/31/19 12/31/19 levofloxacin 750 mg PO DAILYX7 12/31/19 Previous Rx's Medication Instructions Recorded ketorolac 10 mg PO Q6H PRN 5 Days #14 tab 12/31/19 ondansetron 4 mg PO Q8H PRN #14 tab 12/31/19 Allergies Allergy/AdvReac Type Severity Reaction Status Date / Time fluoxetine [From Prozac] Allergy Verified 12/31/19 13:12 Penicillins Allergy Verified 12/31/19 13:12 Review of Systems <WESTON Whitman - Last Filed: 12/31/19 21:40> Review of Systems Narrative: REVIEW OF SYSTEMS: GENERAL: Denies fever, chills, malaise, or wt. loss. HENT: No head trauma, sore throat, or dysphagia. EYES: No loss of vision, double vision, eye pain, or irritation. CARDIOVASCULAR: No chest pain, palpitations, or orthopnea. RESPIRATORY: No shortness of breath or cough. GASTROINTESTINAL: Complains of nausea, see HPI. GENITOURINARY: Complains of right-sided flank pain, see HPI. MUSCULOSKELETAL: No pain, weakness, or trauma. INTEGUMENTARY: No rash, lesions, or pruritus. NEURO: No numbness, tingling, memory loss, confusion, or headaches. PSYCH: No behavior or mood changes. Patient History <WESTON Whitman - Last Filed: 12/31/19 21:40> Medical History [id number] transgender person (Inactive) Surgical History History of mastectomy (Acute) Social History Smoking Status: Never smoker Smoking Status: Never smoker Substance Use Type: does not use Exam <WESTON Whitman - Last Filed: 12/31/19 21:40> Initial Vital Signs Initial Vital Signs: Vital Signs Temperature 98.1 F 12/31/19 13:13 Pulse Rate 75 12/31/19 13:13 Respiratory Rate 16 12/31/19 13:13 Blood Pressure 112/79 12/31/19 13:13 Pulse Oximetry 99 12/31/19 13:13 PHYSICAL EXAMINATION: GENERAL: Well groomed, alert, and cooperative. Answers questions promptly and appropriately. Vital signs noted. HENT: Normocephalic, atraumatic. Hearing intact. Oral mucosa is pink and moist. EYES: Conjunctiva pink, sclera white, no periorbital swelling. CARDIOVASCULAR: S1 and S2 sounds normal. Regular rate and rhythm, no murmurs, clicks, or bruits. No pedal edema. RESPIRATORY: Normal respiratory rate, trachea midline, airway patent. No stridor, nasal flaring or accessory muscle use. Lungs are clear in all sood without wheeze, rhonchi, or crackles. No cough observed GASTROINTESTINAL: Bowel sounds normoactive. Abdomen is soft and non-tender. No organomegaly, no palpable masses. GENITALURINARY: Mild right-sided CVA tenderness. MUSCULOSKELETAL: Normal gait and coordination. Equal tone and mass bilaterally. EXTREMITIES: CMS intact, no pedal edema. SKIN: Warm, dry, soft, appropriate color for ethnicity. No lesions, rashes, or wounds to visualized areas. NEURO: Alert and Oriented X 3. Good coordination. No ataxia, or sensory deficits, or cognitive issues. PSYCH: Appropriate affect and mood. <Tuan Pena MD - Last Filed: 01/01/20 11:21> Initial Vital Signs Initial Vital Signs: Vital Signs Temperature 98.1 F 12/31/19 13:13 Pulse Rate 75 12/31/19 13:13 Respiratory Rate 16 12/31/19 13:13 Blood Pressure 112/79 12/31/19 13:13 Pulse Oximetry 99 12/31/19 13:13 Course <WESTON Whitman - Last Filed: 12/31/19 21:40> Course Course Narrative: Patient states symptoms have mildly improved throughout the emergency department stay. She was hemodynamically stable and was in no distress. Orders Ordered: ED Orders 12/31/19 15:23 Complete Blood Count AUTO DIFF Stat Comprehensive Metabolic Panel Stat D Dimer Stat Lipase Stat Partial Thromboplastin Time Stat Prothrombin Time INR Stat 12/31/19 16:57 EKG-12 Lead Stat 12/31/19 17:36 US abdomen limited Stat 12/31/19 17:48 XR chest 1V Stat Consultations Consultation #1: Patient Staffed with Dr. Pena Vital Signs Vital signs: Vital Signs - 8 hr 12/31/19 21:04 Pulse Rate 77 Blood Pressure 112/62 Pulse Oximetry 94 <Tuan Pena MD - Last Filed: 01/01/20 11:21> Orders Ordered: ED Orders 12/31/19 15:23 Complete Blood Count AUTO DIFF Stat Comprehensive Metabolic Panel Stat D Dimer Stat Lipase Stat Partial Thromboplastin Time Stat Prothrombin Time INR Stat 12/31/19 16:57 EKG-12 Lead Stat 12/31/19 17:36 US abdomen limited Stat 12/31/19 17:48 XR chest 1V Stat Vital Signs Vital signs: Vital Signs - 8 hr 12/31/19 21:04 Pulse Rate 77 Blood Pressure 112/62 Pulse Oximetry 94 MDM - Male Genitourinary <Norma BetancourtWESTON - Last Filed: 12/31/19 21:40> Medical Records Attestation: I reviewed the patient's medical records. Lab Data Attestation: I reviewed the patient's lab results. Result diagrams: 12/31/19 15:23 12/31/19 15:23 Labs: Lab Results 12/31/19 12/31/19 12/31/19 Range/Units 15:23 15:23 15:23 WBC 5.5 (4.5-11.0) X10^3/uL RBC 5.18 (4.5-5.9) X10^6/uL Hgb 16.0 (13.5-17.5) g/dL Hct 46.5 (41-53) % MCV 89.7 (80-100) fL MCH 30.8 (26-34) PG MCHC 34.4 (30-36) % RDW 13.1 (11.6-14.8) % Plt Count 188 (150-400) X10^3/uL Neut % (Auto) 59.5 (50-75) % Lymph % (Auto) 31.4 (25-40) % Moca % (Auto) 7.7 (3-14) % Eos % (Auto) 0.5 L (2-4) % Baso % (Auto) 0.9 (0-2) % Neut # (Auto) 3300 (9917-1477) /uL Lymph # (Auto) 1700 (9502-6977) /uL Moca # (Auto) 400 (0-900) /uL Eos # (Auto) 0 (0-450) /uL Baso # (Auto) 0 (0-100) /uL PT 13.0 H (10.1-12.7) SECONDS INR 1.1 (0.9-1.3) APTT 35 (26.4-36.2) SECONDS D-Dimer (<230) ng/mL Sodium 138 (137-145) mmol/L Potassium 4.3 (3.4-5.1) mmol/L Chloride 101 (98-107) mmol/L Carbon Dioxide 27 (22-32) mmol/L BUN 12 (9-20) mg/dL Creatinine 1.00 (0.66-1.25) mg/dL Estimated GFR > 60.0 (>60) mL/min BUN/Creatinine Ratio 12.0 (6-22) Glucose 125 H (70-100) mg/dL Calcium 9.6 (8.4-10.2) mg/dL Total Bilirubin 3.9 H (0.2-1.3) mg/dL AST 31 (17-59) IU/L ALT 12 (<50) IU/L Alkaline Phosphatase 57 (38-126) U/L Total Protein 8.2 (6.3-8.2) g/dL Albumin 4.7 (3.5-5.0) g/dL Globulin 3.5 (1.7-4.1) g/dL Albumin/Globulin Ratio 1.3 (1.0-2.8) Lipase 85 (23-300) U/L 12/31/19 Range/Units 15:23 WBC (4.5-11.0) X10^3/uL RBC (4.5-5.9) X10^6/uL Hgb (13.5-17.5) g/dL Hct (41-53) % MCV (80-100) fL MCH (26-34) PG MCHC (30-36) % RDW (11.6-14.8) % Plt Count (150-400) X10^3/uL Neut % (Auto) (50-75) % Lymph % (Auto) (25-40) % Moca % (Auto) (3-14) % Eos % (Auto) (2-4) % Baso % (Auto) (0-2) % Neut # (Auto) (6731-2586) /uL Lymph # (Auto) (1322-9344) /uL Moca # (Auto) (0-900) /uL Eos # (Auto) (0-450) /uL Baso # (Auto) (0-100) /uL PT (10.1-12.7) SECONDS INR (0.9-1.3) APTT (26.4-36.2) SECONDS D-Dimer < 200 (<230) ng/mL Sodium (137-145) mmol/L Potassium (3.4-5.1) mmol/L Chloride (98-107) mmol/L Carbon Dioxide (22-32) mmol/L BUN (9-20) mg/dL Creatinine (0.66-1.25) mg/dL Estimated GFR (>60) mL/min BUN/Creatinine Ratio (6-22) Glucose (70-100) mg/dL Calcium (8.4-10.2) mg/dL Total Bilirubin (0.2-1.3) mg/dL AST (17-59) IU/L ALT (<50) IU/L Alkaline Phosphatase (38-126) U/L Total Protein (6.3-8.2) g/dL Albumin (3.5-5.0) g/dL Globulin (1.7-4.1) g/dL Albumin/Globulin Ratio (1.0-2.8) Lipase (23-300) U/L Urine Dip Bedside Urine Glucose Negative Bedside Urine Bilirubin - Negative Bedside Urine Ketone - Negative Urine Specific [place] 1.015 Bedside Urine Occult Blood - Negative Bedside Urine pH 6.0 Bedside Urine Protein - Negative Bedside Urine Urobilinogen - Negative Bedside Urine Nitrite - Negative Bedside Urine Leukocytes - Negative Esterase Imaging Data Chest x-ray: Radiologist's Impression: [address] [address] XRay Report Signed Patient: Ernesto Toribio [facility]#: [id number] : 1990Acct:[id number] Age/Sex: MDate of Service: 12/31/19 Loc: ED Accession Number: [id number] Procedure: XR chest 1V Ordering Provider: Norma Betancourt PROCEDURE: XR CHEST 1V INDICATIONS: SOB TECHNIQUE: One view of the chest was acquired. COMPARISON: [facility], CT, CT KIDNEY URETER BLADDER (KUB), 12/10/2019, 4:10. [facility], US, US ABDOMEN LIMITED, 12/31/2019, 18:13. FINDINGS: Surgical changes and devices: None. Lungs and pleura: Lungs are clear. Lung volumes are prominent. No pleural effusions or pneumothorax. Mediastinum: Mediastinal contours appear normal. Heart size is normal. Bones and chest wall: No suspicious bony lesions. Overlying soft tissues appear unremarkable. IMPRESSION: No acute cardiopulmonary abnormality. Dictated by: Derek Zurita M.D. on 12/31/2019 at 20:07 Approved by: Derek Zurita M.D. on 12/31/2019 at 20:07 US-ABD: Radiologist's Impression: [address] [place] [id number] Ultrasound Report Signed Patient: Ernesto Toribio [facility]#: [id number] : 1990Acct:[id number] Age/Sex: 29 / MDate of Service: 12/31/19 Loc: ED Accession Number: [id number] Procedure: US abdomen limited Ordering Provider: Nomra Betancourt PROCEDURE: US ABDOMEN LIMITED INDICATIONS: R FLANK/RUQ PAIN, R/O HYDRONEPHROSIS AND GALLSTONES TECHNIQUE: Real-time scanning was performed of the abdominal and retroperitoneal organs, with image documentation. COMPARISON: [facility], CT, CT KIDNEY URETER BLADDER (KUB), 12/10/2019, 4:10. [facility], CT, CT ABDOMEN PELVIS W CON, 08/31/2019, 13:03. FINDINGS: Liver: Liver is normal in size and homogeneous in echotexture. Gallbladder: Nondilated. No stones or sludge. Normal gallbladder wall thickness. No pericholecystic fluid. Negative sonographic Sullivan's sign. Biliary ducts: Intrahepatic bile ducts are non-dilated. Extrahepatic bile duct caliber measures 3 mm. Normal is 6-7 mm or less in diameter, or 10 mm or less post-cholecystectomy. Pancreas: Visualized portions of the pancreas are sonographically normal. Kidneys: Kidneys are normal in size and echotexture. Right kidney measures 9.5 cm long; left kidney measures 9.4 cm long. No hydronephrosis or nephrolithiasis. No solid masses. IMPRESSION: 1. No acute cholecystitis. No gallstones. 2. No hydronephrosis. Dictated by: Derek Zurita M.D. on 12/31/2019 at 20:05 Approved by: Derek Zurita M.D. on 12/31/2019 at 20:07 [facility] Narrative Medical decision making narrative: 29-year-old with female transitioning to male, presents to the emergency department for right-sided flank pain. Recent CT on 12/10/19 without stones or acute abdominal etiology. Patient was treated for a urinary tract infection and pyelonephritis over the past few weeks. Patient continues to have right-sided flank pain. Ultrasound is negative for any hydronephrosis, renal function is intact, in urine was without blood or leuk ocytes the for less concern for renal calculi, hydronephrosis, acute kidney failure, for pyelonephritis. Differential includes post infectious inflammatory process, ovarian cyst (patient has history of ovarian cyst), or musculoskeletal strain, or medication side effects as patient was recently taking Levaquin. Patient was encouraged to follow up with his primary care provider in 1-2 weeks for further evaluation. Patient was given Toradol and a did strong to help with symptoms. Return precautions given. <Tuan Pena MD - Last Filed: 01/01/20 11:21> Lab Data Labs: Lab Results 12/31/19 12/31/19 12/31/19 Range/Units 15:23 15:23 15:23 WBC 5.5 (4.5-11.0) X10^3/uL RBC 5.18 (4.5-5.9) X10^6/uL Hgb 16.0 (13.5-17.5) g/dL Hct 46.5 (41-53) % MCV 89.7 (80-100) fL MCH 30.8 (26-34) PG MCHC 34.4 (30-36) % RDW 13.1 (11.6-14.8) % Plt Count 188 (150-400) X10^3/uL Neut % (Auto) 59.5 (50-75) % Lymph % (Auto) 31.4 (25-40) % Moca % (Auto) 7.7 (3-14) % Eos % (Auto) 0.5 L (2-4) % Baso % (Auto) 0.9 (0-2) % Neut # (Auto) 3300 (3741-0056) /uL Lymph # (Auto) 1700 (9011-4100) /uL Moca # (Auto) 400 (0-900) /uL Eos # (Auto) 0 (0-450) /uL Baso # (Auto) 0 (0-100) /uL PT 13.0 H (10.1-12.7) SECONDS INR 1.1 (0.9-1.3) APTT 35 (26.4-36.2) SECONDS D-Dimer (<230) ng/mL Sodium 138 (137-145) mmol/L Potassium 4.3 (3.4-5.1) mmol/L Chloride 101 (98-107) mmol/L Carbon Dioxide 27 (22-32) mmol/L BUN 12 (9-20) mg/dL Creatinine 1.00 (0.66-1.25) mg/dL Estimated GFR > 60.0 (>60) mL/min BUN/Creatinine Ratio 12.0 (6-22) Glucose 125 H (70-100) mg/dL Calcium 9.6 (8.4-10.2) mg/dL Total Bilirubin 3.9 H (0.2-1.3) mg/dL AST 31 (17-59) IU/L ALT 12 (<50) IU/L Alkaline Phosphatase 57 (38-126) U/L Total Protein 8.2 (6.3-8.2) g/dL Albumin 4.7 (3.5-5.0) g/dL Globulin 3.5 (1.7-4.1) g/dL Albumin/Globulin Ratio 1.3 (1.0-2.8) Lipase 85 (23-300) U/L 12/31/19 Range/Units 15:23 WBC (4.5-11.0) X10^3/uL RBC (4.5-5.9) X10^6/uL Hgb (13.5-17.5) g/dL Hct (41-53) % MCV (80-100) fL MCH (26-34) PG MCHC (30-36) % RDW (11.6-14.8) % Plt Count (150-400) X10^3/uL Neut % (Auto) (50-75) % Lymph % (Auto) (25-40) % Moca % (Auto) (3-14) % Eos % (Auto) (2-4) % Baso % (Auto) (0-2) % Neut # (Auto) (2959-4373) /uL Lymph # (Auto) (4095-4362) /uL Moca # (Auto) (0-900) /uL Eos # (Auto) (0-450) /uL Baso # (Auto) (0-100) /uL PT (10.1-12.7) SECONDS INR (0.9-1.3) APTT (26.4-36.2) SECONDS D-Dimer < 200 (<230) ng/mL Sodium (137-145) mmol/L Potassium (3.4-5.1) mmol/L Chloride (98-107) mmol/L Carbon Dioxide (22-32) mmol/L BUN (9-20) mg/dL Creatinine (0.66-1.25) mg/dL Estimated GFR (>60) mL/min BUN/Creatinine Ratio (6-22) Glucose (70-100) mg/dL Calcium (8.4-10.2) mg/dL Total Bilirubin (0.2-1.3) mg/dL AST (17-59) IU/L ALT (<50) IU/L Alkaline Phosphatase (38-126) U/L Total Protein (6.3-8.2) g/dL Albumin (3.5-5.0) g/dL Globulin (1.7-4.1) g/dL Albumin/Globulin Ratio (1.0-2.8) Lipase (23-300) U/L Urine Dip Bedside Urine Glucose Negative Bedside Urine Bilirubin - Negative Bedside Urine Ketone - Negative Urine Specific [place] 1.015 Bedside Urine Occult Blood - Negative Bedside Urine pH 6.0 Bedside Urine Protein - Negative Bedside Urine Urobilinogen - Negative Bedside Urine Nitrite - Negative Bedside Urine Leukocytes - Negative Esterase Discharge Plan Departure Patient Disposition: Home Clinical Impression: Flank pain Discharge Date/Time: 12/31/19 21:05 Activity Restrictions/Additional Instructions: Thank you for entrusting me with your care today. As discussed, your ultrasound is negative for any swelling around your kidney, no kidney stones, and no gallbladder inflammation. As stated your bilirubin was 3.9 but this may be due to your Gilbert syndrome. However, I recommend following up with your primary care provider in the next 1-2 weeks for further evaluation of this. I prescribed you Toradol and ondansetron to help with your symptoms. Return to the emergency department for any new or worsening symptoms such as severe pain, uncontrollable vomiting, high fevers, or other concerns. Prescriptions: New ketorolac 10 mg tablet 10 mg PO Q6H PRN (Reason: pain) 5 Days Qty: 14 RF: 0 ondansetron 4 mg tablet,disintegrating 4 mg PO Q8H PRN (Reason: nausea and vomiting) Qty: 14 RF: 0 No Action levofloxacin 750 mg tablet 750 mg PO DAILYX7 RF: 0 adapalene 0.1 % gel 1 applic TOPICAL BEDTIME RF: 0 clindamycin-benzoyl peroxide 1-5 % gel 1 applic TOPICAL DIRECTED RF: 0 testosterone [Fortesta] 10 mg/0.5 gram /actuation gel in metered-dose pump 1 pump transdermal QPM RF: 0 multivitamin Tablet 1 tab PO DAILY RF: 0 Referrals: Zuhair Brunner [Primary Care Provider] -
--- NOTE | 2019-12-31 17:48 | DI.RAD.S_ITS ---
PROCEDURE: XR CHEST 1V INDICATIONS: SOB TECHNIQUE: One view of the chest was acquired. COMPARISON: [facility], CT, CT KIDNEY URETER BLADDER (KUB), 12/10/2019, 4:10. [facility], US, US ABDOMEN LIMITED, 12/31/2019, 18:13. FINDINGS: Surgical changes and devices: None. Lungs and pleura: Lungs are clear. Lung volumes are prominent. No pleural effusions or pneumothorax. Mediastinum: Mediastinal contours appear normal. Heart size is normal. Bones and chest wall: No suspicious bony lesions. Overlying soft tissues appear unremarkable. IMPRESSION: No acute cardiopulmonary abnormality. Dictated by: Derek Zurita M.D. on 12/31/2019 at 20:07 Approved by: Derek Zurita M.D. on 12/31/2019 at 20:07
[2019-12-31 18:15] LABS: D Dimer < 200 ng/mL (<230)
[2019-12-31 21:04] VITALS: BP 112/62; PULSE 77; O2SAT 94
== END 2019-12-31 21:05 | disposition home or self-care (01) ==
PROVIDERS: Emergency Medicine; Emergency Provider Nurse Practitioner; PCP Family Medicine
DX: R10.9 Unspecified abdominal pain (principal); R06.02 Shortness of breath; R10.11 Right upper quadrant pain
CPT/HCPCS: 36415; 71045; 76705; 80053; 81003; 83690; 85025; 85379; 85610; 85730; 93005; 99283; 99285

== ENCOUNTER 2020-02-11 12:30 | Outpatient (RCR) | payer OTHER, SELFPAY ==
--- NOTE | 2019-08-11 12:02 | OT.OP.EVAL ---
Visit Care Team Role Provider Type Zuhair Brunner Attending Provider Non-Staff Primary Care Provider Specialty: Medical Address: [address] [place] [address], [place], [address] Fax: Email: Occupational Therapy Initial Evaluation OT Outpatient Adult Evaluation Start: 08/10/19 11:46 Freq: Status: Active Protocol: Document 08/07/19 12:30 AMS (Rec: 08/10/19 12:32 AMS [email or web address]) General Information Visit Start Time 10:30 Visit Stop Time 11:18 Total Visit Minutes 48 Visit Number Eval Plan of Care Dates 08/07/19-10/30/19 Insurance Information 1 Eval; 12 visits Treatment Setting Outpatient Care Note Type Initial Evaluation Referring Physician Zuhair Brunner MD; [facility] [place] Precautions 28 y.o male w/ 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 Identification Confirmed Yes: Photo ID Medical History Health History form completed and placed in paper chart. Significant for back pain; headaches; jaw pain; neck pain ; scoliosis; minor damage to stomach lining. 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 Did not receive therapy for injury, however, splint was recommended. Unable to use splint at work (d/t regulations). Bilateral splints have been previously recommended. History of Therapy Physical therapy for scoliosis . Therapy Pain Assessment When Pain Assessed pre-tx Pain Present Pain Reported Left Wrist Intensity 2 Scale Used Numeric (1 - 10) Right Wrist Scale Used 3-6 central; 2 radial/ulnar ( volar surface) Goals Objective Measurements (+) R Roverto's. (-) current use of splint. Short Term Goals 1. 4+/5 MMT R wrist flexion 2. 4+/5 MMT R wrist extension 3. 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 Ernesto will be modified independent with distal upper extremity home exercise program utilizing provided written and visual instructions. 2. Ernesto will present with increased ability to actively engage in meaningful daily activities, as evidenced by reduction in pain symptoms. Ernesto aki indicate 1-2/10 on Pain Assessment Grid. 3. Ernesto will present with increased ability to actively engage in meaningful activities, as evidenced by ability to complete light meal preparation activities without complaints of pain/ discomfort with modified independence (e.g., opening jars, mixing ingredients). 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 PMH: significant for back pain; headaches; jaw pain; neck pain; scoliosis; minor damage to stomach lining . 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 Did not receive therapy for injury, however, splint was recommended. Unable to use splint at work (d/t regulations). Bilateral splints have been previously recommended. Evaluation findings: R hand dominant; pain/discomfort of distal R UE; (-) use of splint currently; h/o injury to R wrist without treatment; (-) Phalens B; (+) R Finkelsteins; able to oppose R thumb to base of R 5th digit w/ minor stretch/discomfort; slight R thumb swelling; decreased functional object manipulation abilities verbally reported secondary to pain/discomfort/ weakness; increased stiffness w/ tendency towards slight forearm pronation; decreased R wrist strength; decreased R thumb strength; modifications to day-to-day life d/t pain/ discomfort and weakness; decreased ability to engage in meaningful activities secondary to symptoms. Outpatient OT is recommended to address symptoms in order to maximize patient's ability to successfully engage in meaningful daily activities in a variety of environments. Home Exercise Program Initiated home exercise program. Instructed in passive wrist flexion, extension and radial deviation exercises with elbow near full extension . Reviewed with Patient Home Exercise Program Comment 12 weeks Treatment Frequency Once a Week Therapeutic Contents Active Range of Motion, Adaptive Equipment Education, Client Education,Cognitive Skills Development,Functional Activities,Home Exercise Program,Joint Protection, Manual Therapy,Education, Neurodevelopment Treatment, Neuromuscular Re-Education, Self-Care,Splinting,Stretching /Flexibility Activities, Therapeutic Activities, Therapeutic Exercises, Modalities,Sensory Re- education Types of Modalities Contrast Bath,E-Stim, Functional Stimulation (FES), Ice Massage,Low Level Laser,T. E.N. Stimulation,TENS Placement/Application, Ultrasound Additional Types of Modalities Heat Patient Instruction Home Exercise Program,Plan of Care,Questions/Concerns,Other Occupational Therapy Assessment OT Outpatient Muscle Testing Start: 08/10/19 11:46 Freq: Status: Active Protocol: Document 08/07/19 12:30 AMS (Rec: 08/11/19 11:46 AMS [email or web address]) Wrist Strength Wrist Manual Muscle Testing Left Flexion (C7) 5 Normal Extension (C6) 5 Normal Ulnar Deviation 4+ Good+ Radial Deviation 4+ Good+ Right Flexion (C7) 4- Good- Extension (C6) 3+ Fair+ Ulnar Deviation 3+ Fair+ Radial Deviation 3+ Fair+ Switch Coupler/Hand Strength Switch Coupler/Hand Strength Left Switch Coupler Dynamometer II 45.7 Lateral Pinch Strengh (lbs) 19.0 Right Switch Coupler Dynamometer II 44.7 Lateral Pinch Strengh (lbs) 17.8 Occupational Therapy Assessment OT Outpatient Range of Motion Start: 08/10/19 11:46 Freq: Status: Active Protocol: Document 08/07/19 12:30 AMS (Rec: 08/10/19 12:32 AMS [email or web address]) ROM - Elbow/Forearm Elbow/Forearm Measured in Degrees Left Active Elbow/Forearm ROM WFL Yes Right Active Elbow/Forearm ROM WFL Yes ROM - Wrist Wrist Range of Motion Measured in Degrees Left Active Wrist Flex AROM (degrees) 0-75 Wrist Ext AROM Fingers Open (degrees) 0-75 Ulnar Deviation AROM (degrees) 0-35 Radial Deviation AROM (degrees) 0-15 Right Active Wrist Flex AROM (degrees) 0-75 Wrist Ext AROM Fingers Open (degrees) 0-70 Ulnar Deviation AROM (degrees) 0-35 Radial Deviation AROM (degrees) 0-10
--- NOTE | 2019-08-11 13:07 | OT.OP.TRT ---
Visit Care Team Role Provider Type Zuhair Alanvincentmissael Attending Provider Non-Staff Primary Care Provider Specialty: Medical Address: [address] [place] [address], [place], [address] Fax: Email: Occupational Therapy Treatment Note OT Outpatient Treatment Note - Adult Start: 08/10/19 11:46 Freq: Status: Active Protocol: Document 08/11/19 12:54 AMS (Rec: 08/11/19 13:07 AMS [email or web address]) OT Outpatient Adult Treatment Note Session Time Visit Start Time 10:30 Visit Stop Time 11:20 Total Visit Minutes 50 Visit Information Visit Number 12/13 Plan of Care Dates 08/07/19-10/30/19 Insurance Information 1 Eval; 12 visits Setting Treatment Setting Outpatient Care Visit Type Note Type Treatment Note General Information General Information Patient is a right hand dominant 28 year-old male referred to outpatient OT by PCP secondary to 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 PMH: significant for back pain; headaches; jaw pain; neck pain; scoliosis; minor damage to stomach lining . 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 Did not receive therapy for injury, however, splint was recommended. Unable to use splint at work (d/t regulations). Bilateral splints have been previously recommended. - Subjective Identification Type Name,Picture Identification Reconciled With Medical Record Observations I have been doing my stretches at work per Ernesto. Chief Complaint(s) Restricts - Objective Objective Measurements QuickDASH UE Outcome Measure Completed - 08/11/19 Score = 20.45 Short Term Goals 1. 4+/5 MMT R wrist flexion 2. 4+/5 MMT R wrist extension 3. 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 Ernesto will be modified independent with distal upper extremity home exercise program utilizing provided written and visual instructions. 2. Ernesto will present with increased ability to actively engage in meaningful daily activities, as evidenced by reduction in pain symptoms. Ernesto aki indicate 1-2/10 on Pain Assessment Grid. 3. Ernesto will present with increased ability to actively engage in meaningful activities, as evidenced by ability to complete light meal preparation activities without complaints of pain/ discomfort with modified independence (e.g., opening jars, mixing ingredients). 4. Ernesto will present with increased ability to actively engage in meaningful activities, as evidenced by obtaining a score of 10.00 or less on QuickDASH UE Outcome Measure. - Treatment 1 Descriptor Ultrasound. 2.0 w/cm2. 20% duty cycle. x 8 minutes. Radial surface of right wrist to address inflammation/ swelling. Exercises 3 Descriptor Home exercise program. Reviewed passive range of motion exercises. Initiated theraband wrist strengthening exercises; initiated theraputty lateral pinch strengthening exercises. Provided Ernesto with written and visual instructions for wrist strengthening exercises; copy placed in chart. Patient denied need for written and visual instructions for theraputty; provided him with medium firm green theraputty for home use and personal TB # 2. Reviewed care of theraputty in the home. Ernesto denied questions. Complexity Upgraded 2 Descriptor Thumb strengthening Side Right Body Position Sitting Sets 2 Repetitions 10 Resistance Green theraputty Complexity Upgraded 1 Descriptor Wrist Strengthening Wrist flexion; wrist extension ; wrist UD; wrist RD Side Right Body Position Sitting Sets 2 Repetitions 10 Resistance TB #2 Complexity Upgraded - Assessment Patient Response to Treatment Good Rehab Potential Good Impairments Identified ADLs,Coordination/Dexterity, Functional Activities,Pain, Recreational Activities, Meaningful Activities, Stiffness,Swelling,Soft Tissue Mobility,Motor Planning Assessment of Improvement (+) carry-over of home exercise program based on patient's verbal report. Decreased wrist/lateral pinch strength. Utilization of compensatory strategies in day -to-day life d/t complaints of pain and weakness bilaterally . Advanced home exercise program to address presenting weakness. 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 Recommend advancing strengthening exercises as tolerated. Home Exercise Program Please refer to treatment section of note for specific details. Reviewed with Patient/Caregiver Goals,Home Exercise Program Patient/Caregiver Understanding Good - Plan Therapy Recommendations Continue with Current Program, Advance per Rehabilitation Protocol
--- NOTE | 2019-08-20 12:52 | OT.OP.TRT ---
Visit Care Team Role Provider Type Zuhair Brunner Attending Provider Non-Staff Primary Care Provider Specialty: Medical Address: [address] [place] [address], [place], [address] Fax: Email: Occupational Therapy Treatment Note OT Outpatient Treatment Note - Adult Start: 08/10/19 11:46 Freq: Status: Active Protocol: Document 08/20/19 12:38 AMS (Rec: 08/20/19 12:52 AMS [email or web address]) OT Outpatient Adult Treatment Note Session Time Visit Start Time 08:30 Visit Stop Time 09:18 Total Visit Minutes 48 Visit Information Visit Number 01/13 Plan of Care Dates 08/07/19-10/30/19 Insurance Information 1 Eval; 12 visits Setting Treatment Setting Outpatient Care Visit Type Note Type Treatment Note General Information General Information Patient is a right hand dominant 28 year-old male referred to outpatient OT by PCP secondary to 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 PMH: significant for back pain; headaches; jaw pain; neck pain; scoliosis; minor damage to stomach lining . 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 Did not receive therapy for injury, however, splint was recommended. Unable to use splint at work (d/t regulations). Bilateral splints have been previously recommended. - Subjective Identification Type Name,Picture Identification Reconciled With Medical Record Observations I haven't been able to do the exercises with the theraband. 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 Chief Complaint(s) Restricts - Objective Objective Measurements QuickDASH UE Outcome Measure Completed - 08/11/19 Score = 20.45 Short Term Goals 1. 4+/5 MMT R wrist flexion 2. 4+/5 MMT R wrist extension 3. 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 Ernesto will be modified independent with distal upper extremity home exercise program utilizing provided written and visual instructions. 2. Ernesto will present with increased ability to actively engage in meaningful daily activities, as evidenced by reduction in pain symptoms. Ernesto aki indicate 1-2/10 on Pain Assessment Grid. 3. Ernesto will present with increased ability to actively engage in meaningful activities, as evidenced by ability to complete light meal preparation activities without complaints of pain/ discomfort with modified independence (e.g., opening jars, mixing ingredients). 4. Ernesto will present with increased ability to actively engage in meaningful activities, as evidenced by obtaining a score of 10.00 or less on QuickDASH UE Outcome Measure. - Treatment 1 Descriptor Ultrasound. 2.0 w/cm2. 20% duty cycle. x 8 minutes. Radial surface of right wrist to address inflammation/ swelling. Exercises 4 Descriptor Wrist stabilization Side Right Body Position Sitting Sets 1 Repetitions 10 Resistance 3.3# spherical ball 3 Descriptor Home exercise program. 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 Instructed to 3.3# spherical shape to work on stabilization w/ object in hand w/ forearm supination/pronation. Education re: importance of wrist extension to support success w/ manipulation. Recommended 2 sets of 10 reps. Ernesto denied questions. Complexity Upgraded 2 Descriptor Thumb strengthening Side Right Body Position Sitting Sets 2 Repetitions 10 Resistance Green theraputty Complexity Upgraded 1 Descriptor Wrist Strengthening Wrist flexion; wrist extension ; wrist UD; wrist RD Side Right Body Position Sitting Sets 2 Repetitions 10 Resistance TB #2 Complexity Upgraded Manual Therapy Manual Therapy Manual therapy to distal R UE. Addressed muscular stiffness; joint mobs to facilitate wrist supination and wrist ulnar deviation. Initial ' clicking' noted pre- mobs; (-) clicking noted w/ AROM of wrist in all directions s/p mobs. - Assessment Patient Response to Treatment Good Rehab Potential Good Impairments Identified ADLs,Coordination/Dexterity, Functional Activities,Pain, Recreational Activities, Meaningful Activities, Stiffness,Swelling,Soft Tissue Mobility,Motor Planning Assessment of Improvement Increased distal R UE stiffness compared to previous treatment session; (+) clicking noted w/ wrist extension w/ forearm supination and with UD w/ forearm positioned in neutral. (+) response to manual therapy and mobs. Reviewed importance of daily execution of stretches. 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 Recommend advancing strengthening exercises as tolerated. Home Exercise Program Please refer to treatment section of note for specific details. Reviewed with Patient/Caregiver Goals,Home Exercise Program Patient/Caregiver Understanding Good - Plan Therapy Recommendations Continue with Current Program, Advance per Rehabilitation Protocol
--- NOTE | 2019-08-28 16:38 | OT.OP.TRT ---
Visit Care Team Role Provider Type Zuhair Brunner Attending Provider Non-Staff Primary Care Provider Specialty: Medical Address: [address] [place] [address], [place], [address] Fax: Email: Occupational Therapy Treatment Note OT Outpatient Treatment Note - Adult Start: 08/10/19 11:46 Freq: Status: Active Protocol: Document 08/28/19 16:22 AMS (Rec: 08/28/19 16:38 AMS [email or web address]) OT Outpatient Adult Treatment Note Session Time Visit Start Time 08:30 Visit Stop Time 09:18 Total Visit Minutes 48 Visit Information Visit Number 02/10 Plan of Care Dates 08/07/19-10/30/19 Insurance Information 1 Eval; 12 visits Setting Treatment Setting Outpatient Care Visit Type Note Type Treatment Note General Information General Information Patient is a right hand dominant 28 year-old male referred to outpatient OT by PCP secondary to 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 PMH: significant for back pain; headaches; jaw pain; neck pain; scoliosis; minor damage to stomach lining . 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 Did not receive therapy for injury, however, splint was recommended. Unable to use splint at work (d/t regulations). Bilateral splints have been previously recommended. - Subjective Identification Type Name,Picture Identification Reconciled With Medical Record Observations I have been wearing my brace at work. I wore it 50% of the time. 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 I have been doing the stretches. I don't feel like it is getting any better . Chief Complaint(s) Restricts - Objective Objective Measurements (-) tolerance for distal UE strengthening exercises. (+) stiffness noted in distal R UE relative to forearm supination, forearm supination combined w/ wrist extension, and forearm supination w/ UD and forearm in neutral w/ UD. Stiffness reported volarly of R forearm, as well as radial side of R wrist. Discomfort w/ palpation at R epicondyle. QuickDASH UE Outcome Measure Completed - 08/11/19 Score = 20.45 Short Term Goals 1. 4+/5 MMT R wrist flexion 2. 4+/5 MMT R wrist extension 3. 4+/[address]/UD Usp Goals 1. Ernesto will be modified independent with distal upper extremity home exercise program utilizing provided written and visual instructions. 2. Ernesto will present with increased ability to actively engage in meaningful daily activities, as evidenced by reduction in pain symptoms. Ernesto aki indicate 1-2/10 on Pain Assessment Grid. 3. Ernesto will present with increased ability to actively engage in meaningful activities, as evidenced by ability to complete light meal preparation activities without complaints of pain/ discomfort with modified independence (e.g., opening jars, mixing ingredients). 4. Ernesto will present with increased ability to actively engage in meaningful activities, as evidenced by obtaining a score of 10.00 or less on QuickDASH UE Outcome Measure. - Treatment 1 Descriptor Ultrasound. 2.0 w/cm2. 20% duty cycle. x 8 minutes. Radial surface of right wrist to address inflammation/ swelling. Exercises 4 Descriptor Wrist stabilization Side Right Body Position Sitting Sets 1 Repetitions 10 Resistance 3.3# spherical ball 3 Descriptor Home exercise program. Reviewed importance of daily execution of passive range of motion exercises; discussed body mechanics w/ lifting and transportation of items. Education was completed re: benefits of use of contrast bath; written instructions were provided and verbal instructions to utilize divided sink. Recommended reducing ratio of contrast baths to 5 minutes. Discussed use of paraffin bath for the home to assist w/ swelling management and address stiffness. Ernesto reported that he will pursue investing in paraffin bath for home use. Discussed use of splint and inability to progress resistance exercises. Plan: Patient to follow-up w/ PCP d/ t inability to progress strengthening exercises at this time d/t pain/discomfort. - Assessment Patient Response to Treatment Good Rehab Potential Good Impairments Identified ADLs,Coordination/Dexterity, Functional Activities,Pain, Recreational Activities, Meaningful Activities, Stiffness,Swelling,Soft Tissue Mobility,Motor Planning Assessment of Improvement (+) response to manual therapy and mobs. Initiated use of distal UE splint at work. However, still unable to engage in distal UE strengthening exercises pre- or post-work d/t pain/ discomfort. Education re: basic body mechanics, contrast baths and paraffin bath. Discussed use of contrast baths to assist w/ inflammation. Discussed use of paraffin bath pre- ROM, assist w/ flexibility, and assist w/ edema management. Patient to consult w/ PCP secondary to inability to engage in strengthening exercises d/t pain/discomfort from work duties. Home Exercise Program Please refer to treatment section of note for specific details. Reviewed with Patient/Caregiver Goals,Home Exercise Program Patient/Caregiver Understanding Good - Plan Therapy Recommendations Continue with Current Program Additional Therapy Recommendations Follow-up w/ PCP
--- NOTE | 2019-09-10 13:52 | OT.OP.TRT ---
Visit Care Team Role Provider Type Zuhair Brunner Attending Provider Non-Staff Primary Care Provider Specialty: Medical Address: [address] [place] [address], [place], [address] Fax: Email: Occupational Therapy Treatment Note OT Outpatient Treatment Note - Adult Start: 08/10/19 11:46 Freq: Status: Active Protocol: Document 09/10/19 13:40 AMS (Rec: 09/10/19 13:52 AMS [email or web address]) OT Outpatient Adult Treatment Note Session Time Visit Start Time 08:30 Visit Stop Time 09:18 Total Visit Minutes 48 Visit Information Visit Number 03/13 Plan of Care Dates 08/07/19-10/30/19 Insurance Information 1 Eval; 12 visits Setting Treatment Setting Outpatient Care Visit Type Note Type Treatment Note General Information General Information Patient is a right hand dominant 28 year-old male referred to outpatient OT by PCP secondary to 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 PMH: significant for back pain; headaches; jaw pain; neck pain; scoliosis; minor damage to stomach lining . 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 Did not receive therapy for injury, however, splint was recommended. Unable to use splint at work (d/t regulations). Bilateral splints have been previously recommended. - Subjective Identification Type Name,Picture Identification Reconciled With Medical Record Observations I got really sick last week. I had a dentist appointment at the same time as this appointment per Ernesto. My appointment with my doctor is not until later on this month. Chief Complaint(s) Restricts - Objective Objective Measurements (-) tolerance for distal UE strengthening exercises. (+) stiffness noted in distal R UE relative to forearm supination, forearm supination combined w/ wrist extension, and forearm supination w/ UD and forearm in neutral w/ UD. Stiffness reported volarly of R forearm, as well as radial side of R wrist. Discomfort w/ palpation at R epicondyle. QuickDASH UE Outcome Measure Completed - 08/11/19 Score = 20.45 Short Term Goals 1. 4+/5 MMT R wrist flexion 2. 4+/5 MMT R wrist extension 3. 4+/[address]/UD Director Of Guidance Goals 1. Ernesto will be modified independent with distal upper extremity home exercise program utilizing provided written and visual instructions. 2. Ernesto will present with increased ability to actively engage in meaningful daily activities, as evidenced by reduction in pain symptoms. Ernesto aki indicate 1-2/10 on Pain Assessment Grid. 3. Ernesto will present with increased ability to actively engage in meaningful activities, as evidenced by ability to complete light meal preparation activities without complaints of pain/ discomfort with modified independence (e.g., opening jars, mixing ingredients). 4. Ernesto will present with increased ability to actively engage in meaningful activities, as evidenced by obtaining a score of 10.00 or less on QuickDASH UE Outcome Measure. - Treatment 1 Descriptor Ultrasound. 2.0 w/cm2. 20% duty cycle. x 10 minutes. Radial surface of right wrist to address inflammation/ swelling. Exercises 3 Descriptor Home exercise program/Plan of Care. Plan of Care: Instructed to obtain OT documentation from Medical Records Department at [facility]. Based on information provided by outpatient life insurance actuary, patient was informed of need to obtain new auth from PCP in order to continue outpatient therapy. Unable to progress home exercises at this time; recommend continuation of current home exercise program. Will modify plan as recommended by patient's PCP. Manual Therapy Manual Therapy Manual therapy to distal R UE. Joint mobilization to facilitate forearm supination, wrist ext/flex, wrist UD/RD; mobs to R wrist carpals. - Assessment Patient Response to Treatment Good Rehab Potential Good Impairments Identified ADLs,Coordination/Dexterity, Functional Activities,Pain, Recreational Activities, Meaningful Activities, Stiffness,Swelling,Soft Tissue Mobility,Motor Planning Assessment of Improvement (+) response to manual therapy and mobs. Still unable to engage in distal UE strengthening exercises pre- or post-work d/t pain/ discomfort. Patient was unable to schedule appointment earlier w/ PCP based on physician availability. Home Exercise Program Please refer to treatment section of note for specific details. Reviewed with Patient/Caregiver Goals,Home Exercise Program Patient/Caregiver Understanding Good - Plan Therapy Recommendations Continue with Current Program Additional Therapy Recommendations Follow-up w/ PCP
--- NOTE | 2019-10-02 13:02 | OT.OP.TRT ---
Visit Care Team Role Provider Type Zuhair Brunner Attending Provider Non-Staff Primary Care Provider Specialty: Medical Address: [address] [place] [address], [place], [address] Fax: Email: Occupational Therapy Treatment Note OT Outpatient Treatment Note - Adult Start: 08/10/19 11:46 Freq: Status: Active Protocol: Document 10/02/19 12:44 AMS (Rec: 10/02/19 13:02 AMS [email or web address]) OT Outpatient Adult Treatment Note Session Time Visit Start Time 08:30 Visit Stop Time 09:18 Total Visit Minutes 48 Visit Information Visit Number 04/12 Plan of Care Dates 08/07/19-10/30/19 Insurance Information 1 Eval; 12 visits Setting Treatment Setting Outpatient Care Visit Type Note Type Treatment Note General Information General Information Patient is a right hand dominant 28 year-old male referred to outpatient OT by PCP secondary to 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 PMH: significant for back pain; headaches; jaw pain; neck pain; scoliosis; minor damage to stomach lining . History of injuring right wrist in 2010 d/t manipulating meat boner. Did not receive therapy for injury, however, splint was recommended. Unable to use splint at work (d/t regulations). Bilateral splints have been previously recommended. - Subjective Identification Type Name,Picture Identification Reconciled With Medical Record Observations My doctor gave me 20 pound weight lifting restrictions per Ernesto. I only have pain now when the wrist ' clicks'. It is not all the time like it was. My doctor also has referred me to a neurologist and a lands resource manager. My short term memory is not very good and some times I have a hard time finding the right word. I was told when I was 15 that my short term memory was bad. Chief Complaint(s) Restricts - Objective Objective Measurements Decreased complaints of pain/ discomfort compared to previous treatment session. Report of pain/discomfort of the right wrist only when ' clicking'. QuickDASH UE Outcome Measure Completed - 08/11/19. Score = 20.45 Short Term Goals 1. 4+/5 MMT R wrist flexion 2. 4+/5 MMT R wrist extension 3. 4+/[address]/UD [employer] Lif[employer]ard Goals 1. Ernesto will be modified independent with distal upper extremity home exercise program utilizing provided written and visual instructions. 2. Ernesto will present with increased ability to actively engage in meaningful daily activities, as evidenced by reduction in pain symptoms. Ernesto aki indicate 1-2/10 on Pain Assessment Grid. 3. Ernesto will present with increased ability to actively engage in meaningful activities, as evidenced by ability to complete light meal preparation activities without complaints of pain/ discomfort with modified independence (e.g., opening jars, mixing ingredients). 4. Ernesto will present with increased ability to actively engage in meaningful activities, as evidenced by obtaining a score of 10.00 or less on QuickDASH UE Outcome Measure. - Treatment 1 Descriptor Ultrasound. 2.0 w/cm2. 20% duty cycle. x 10 minutes. Radial volar surface of right wrist to address inflammation/ swelling. Skin intact pre- and post-treatment. Exercises 3 Descriptor Home exercise program/Plan of Care. Obtained authorization for additional outpatient OT treatment sessions; placed on weight lifting restrictions by PCP for 20#. Reduction of pain/discomfort already noted by patient since placed on restrictions; was able to commute without pain and melissa joint mobs/stretches on this date without increase in symptoms. Instructed to resume strengthening exercises as tolerated. Provided written and visual instructions for passive forearm supination w/ wrist ext w/ slight UD. Manual Therapy Manual Therapy Manual therapy to distal R UE. Joint mobilization to facilitate forearm supination, wrist ext/flex, wrist UD/RD; mobs to R wrist carpals. - Assessment Patient Response to Treatment Good Rehab Potential Good Impairments Identified ADLs,Coordination/Dexterity, Functional Activities,Pain, Recreational Activities, Meaningful Activities, Stiffness,Swelling,Soft Tissue Mobility,Motor Planning Assessment of Improvement (+) response to treatment; change in pain/discomfort of right wrist verbally reported by patient since placed on weight lifting restrictions. Given identification of short term memory deficits, written and visual instructions provided for passive distal UE stretch. Copy also placed in paper chart. Recommend starting strengthening exercises given reduction of pain symptoms. (+) tightness noted radially of wrist w/ forearm supination. Recommend advancing HEP/treatment activities as tolerated. Home Exercise Program Please refer to treatment section of note for specific details. Reviewed with Patient/Caregiver Goals,Home Exercise Program Patient/Caregiver Understanding Good - Plan Therapy Recommendations Continue with Current Program, Advance per Rehabilitation Protocol
--- NOTE | 2019-10-09 16:17 | OT.OP.TRT ---
Visit Care Team Role Provider Type Zuhair Brunner Attending Provider Non-Staff Primary Care Provider Specialty: Medical Address: [address] [place] [address], [place], [address] Fax: Email: Occupational Therapy Treatment Note OT Outpatient Treatment Note - Adult Start: 08/10/19 11:46 Freq: Status: Active Protocol: Document 10/09/19 16:06 AMS (Rec: 10/09/19 16:17 AMS [email or web address]) OT Outpatient Adult Treatment Note Session Time Visit Start Time 08:30 Visit Stop Time 09:15 Total Visit Minutes 45 Visit Information Visit Number 05/13 Plan of Care Dates 08/07/19-10/30/19 Insurance Information 1 Eval; 12 visits Setting Treatment Setting Outpatient Care Visit Type Note Type Treatment Note General Information General Information Patient is a right hand dominant 28 year-old male referred to outpatient OT by PCP secondary to 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 PMH: significant for back pain; headaches; jaw pain; neck pain; scoliosis; minor damage to stomach lining . History of injuring right wrist in 2010 d/t manipulating meat soaker. Did not receive therapy for injury, however, splint was recommended. Unable to use splint at work (d/t regulations). Bilateral splints have been previously recommended. 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 My doctor put me on 10# weight lifting restrictions per Ernesto. Chief Complaint(s) Restricts - Objective Objective Measurements Decreased joint mobility of wrist; (+) crepitus w/ joint mobs of carpals. (+) stiffness notably of right side volar surface of wrist. QuickDASH UE Outcome Measure Completed - 08/11/19. Score = 20.45 Short Term Goals 1. 4+/5 MMT R wrist flexion 2. 4+/5 MMT R wrist extension 3. 4+/[address]/UD [place] Goals 1. Ernesto will be modified independent with distal upper extremity home exercise program utilizing provided written and visual instructions. 2. Ernesto will present with increased ability to actively engage in meaningful daily activities, as evidenced by reduction in pain symptoms. Ernesto aki indicate 1-2/10 on Pain Assessment Grid. 3. Ernesto will present with increased ability to actively engage in meaningful activities, as evidenced by ability to complete light meal preparation activities without complaints of pain/ discomfort with modified independence (e.g., opening jars, mixing ingredients). 4. Ernesto will present with increased ability to actively engage in meaningful activities, as evidenced by obtaining a score of 10.00 or less on QuickDASH UE Outcome Measure. - Treatment 1 Descriptor Ultrasound. 2.0 w/cm2. 20% duty cycle. x 10 minutes. Radial volar surface of right wrist to address inflammation/ swelling. Skin intact pre- and post-treatment. Exercises 3 Descriptor Home exercise program/Plan of Care. Recommended continued use of splint and isotoner gloves to assist w/ edema/ swelling management. Recommended continued execution of stretches/glides. Education provided re: basic joint protection principles relative to the hands; written handout was provided w/ joint protection principles. Education re: progression to isometric wrist exercises when able to address wrist stability. unable to resume TB strengthening exercises on this date. Manual Therapy Manual Therapy Manual therapy to distal R UE. Joint mobilization to facilitate forearm supination, wrist ext/flex, wrist UD/RD; mobs to R wrist carpals. - Assessment Patient Response to Treatment Good Rehab Potential Good Impairments Identified ADLs,Coordination/Dexterity, Functional Activities,Pain, Recreational Activities, Meaningful Activities, Stiffness,Swelling,Soft Tissue Mobility,Motor Planning Assessment of Improvement Increased pain/discomfort d/t injury that occurred at work; weight lifting restrictions reduced to 10# restrictions. Improved mobility at end of treatment session s/p modality and joint mobs by therapist. Home Exercise Program Please refer to treatment section of note for specific details. Reviewed with Patient/Caregiver Goals,Home Exercise Program Patient/Caregiver Understanding Good - Plan Therapy Recommendations Continue with Current Program, Advance per Rehabilitation Protocol
--- NOTE | 2019-10-14 15:30 | OT.OP.TRT ---
Visit Care Team Role Provider Type Zuhairleny Mariemissael Attending Provider Non-Staff Primary Care Provider Specialty: Medical Address: [address] [place] [address], [place], [address] Fax: Email: Occupational Therapy Treatment Note OT Outpatient Treatment Note - Adult Start: 08/10/19 11:46 Freq: Status: Active Protocol: Document 10/14/19 15:30 AMS (Rec: 10/15/19 15:23 AMS [email or web address]) OT Outpatient Adult Treatment Note Session Time Visit Start Time 14:30 Visit Stop Time 15:15 Total Visit Minutes 45 Visit Information Visit Number 06/12 Plan of Care Dates 08/07/19-10/30/19 Insurance Information 1 Eval; 12 visits Setting Treatment Setting Outpatient Care Visit Type Note Type Treatment Note General Information General Information Patient is a right hand dominant 28 year-old male referred to outpatient OT by PCP secondary to 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 PMH: significant for back pain; headaches; jaw pain; neck pain; scoliosis; minor damage to stomach lining . 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 Did not receive therapy for injury, however, splint was recommended. Unable to use splint at work (d/t regulations). Bilateral splints have been previously recommended. 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 It is already starting to feel better. Chief Complaint(s) Restricts Patient/Caregiver Compliance with Home Good Exercise Program Comments w/ written and visual instructions - Objective Objective Measurements Increased joint mobility compared to previous treatment session; (+) stiffness right side volar surface of wrist. QuickDASH UE Outcome Measure Completed - 08/11/19. Score = 20.45 Short Term Goals 1. 4+/5 MMT R wrist flexion 2. 4+/5 MMT R wrist extension 3. 4+/[address]/UD [facility] Goals 1. Ernesto will be modified independent with distal upper extremity home exercise program utilizing provided written and visual instructions. 2. Ernesto will present with increased ability to actively engage in meaningful daily activities, as evidenced by reduction in pain symptoms. Ernesto aki indicate 1-2/10 on Pain Assessment Grid. 3. Ernesto will present with increased ability to actively engage in meaningful activities, as evidenced by ability to complete light meal preparation activities without complaints of pain/ discomfort with modified independence (e.g., opening jars, mixing ingredients). 4. Ernesto will present with increased ability to actively engage in meaningful activities, as evidenced by obtaining a score of 10.00 or less on QuickDASH UE Outcome Measure. - Treatment 1 Descriptor Ultrasound. 2.0 w/cm2. 20% duty cycle. x 10 minutes. Radial volar surface of right wrist to address inflammation/ swelling. Skin intact pre- and post-treatment. Exercises 3 Descriptor Home exercise program/Plan of Care. Introduced isometric exercises; reviewed exercises in treatment session. Visual instructions provided to assist w/ carry-over (wrist flexion, wrist extension, wrist RD, wrist UD, stabilization w/ formation of fists). Recommended use of foam stress ball for visual feedback. Discussed future progression to modified weight bearing exercises at wall/TT level. Ernesto denied questions. Manual Therapy Manual Therapy Manual therapy to distal R UE. Joint mobilization to facilitate forearm supination, wrist ext/flex, wrist UD/RD; mobs to R wrist carpals. - Assessment Patient Response to Treatment Good Rehab Potential Good Impairments Identified ADLs,Coordination/Dexterity, Functional Activities,Pain, Recreational Activities, Meaningful Activities, Stiffness,Swelling,Soft Tissue Mobility,Motor Planning Assessment of Improvement Decreased pain/discomfort compared to previous treatment session; transferred to new department at work. Weight lifting restrictions are still in place. Based on presentation, progressed to isometric exercises. Improved mobility at end of treatment session s/p modality and joint mobs by therapist. Recommend advancing HEP/treatment activities as tolerated. Home Exercise Program Please refer to treatment section of note for specific details. Reviewed with Patient/Caregiver Goals,Home Exercise Program Patient/Caregiver Understanding Good - Plan Therapy Recommendations Continue with Current Program, Advance per Rehabilitation Protocol
--- NOTE | 2019-10-23 14:32 | OT.OP.TRT ---
Visit Care Team Role Provider Type Zuhair Alanvincentmissael Attending Provider Non-Staff Primary Care Provider Specialty: Medical Address: [address] [place] [address], [place], [address] Fax: Email: Occupational Therapy Treatment Note OT Outpatient Treatment Note - Adult Start: 08/10/19 11:46 Freq: Status: Active Protocol: Document 10/23/19 13:16 AMS (Rec: 10/23/19 13:25 AMS [email or web address]) OT Outpatient Adult Treatment Note Session Time Visit Start Time 08:30 Visit Stop Time 09:15 Total Visit Minutes 45 Visit Information Visit Number 07/13 Plan of Care Dates 08/07/19-10/30/19 Insurance Information 1 Eval; 12 visits Setting Treatment Setting Outpatient Care Visit Type Note Type Treatment Note General Information General Information Patient is a right hand dominant 28 year-old male referred to outpatient OT by PCP secondary to 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 PMH: significant for back pain; headaches; jaw pain; neck pain; scoliosis; minor damage to stomach lining . 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 Did not receive therapy for injury, however, splint was recommended. Unable to use splint at work (d/t regulations). Bilateral splints have been previously recommended. - Subjective Identification Type Name,Picture Identification Reconciled With Medical Record Observations My lifting restrictions have been removed per Ernesto. It is my thumb that has been bothering me. Pain Assessment Grid completed; 3/10 indicated on pain scale relative to left palm, dorsal left ulnar wrist, dorsal left thumb webspace. Chief Complaint(s) Restricts Patient/Caregiver Compliance with Home Good Exercise Program Comments w/ written and visual instructions - Objective Objective Measurements Increased joint mobility compared to previous treatment session; (+) stiffness right side volar surface of wrist. QuickDASH UE Outcome Measure Completed - 08/11/19. Score = 20.45 Short Term Goals 1. 4+/5 MMT R wrist flexion 2. 4+/5 MMT R wrist extension 3. 4+/[address]/UD Detention Goals 1. Ernesto will be modified independent with distal upper extremity home exercise program utilizing provided written and visual instructions. 2. Ernesto will present with increased ability to actively engage in meaningful daily activities, as evidenced by reduction in pain symptoms. Ernesto aki indicate 1-2/10 on Pain Assessment Grid. 3. Ernesto will present with increased ability to actively engage in meaningful activities, as evidenced by ability to complete light meal preparation activities without complaints of pain/ discomfort with modified independence (e.g., opening jars, mixing ingredients). 4. Ernesto will present with increased ability to actively engage in meaningful activities, as evidenced by obtaining a score of 10.00 or less on QuickDASH UE Outcome Measure. - Treatment 2 Descriptor Joint mobilization 1 Descriptor Ultrasound. 2.0 w/cm2. 20% duty cycle. x 10 minutes. Dorsal thumb webspace to address inflammation/swelling. Skin intact pre- and post- treatment. Exercises 4 Descriptor Eccentric strengthening of wrist. Side Right Body Position Seated Sets 1 Repetitions 5 Resistance 1# DB Complexity Upgraded 3 Descriptor Home exercise program/Plan of Care. Introduced eccentric wrist strengthening exercises; reviewed exercises in treatment session. Visual/ written instructions provided to assist w/ carry-over (wrist eccentric strengthening with wrist flexion/wrist extension utilizing 1# DB). Introduced gentle thumb AROM; visual/ written instructions provided to assist w/ carry-over. Reviewed in treatment session. Recommended use of thumb brace w/ heavy lifting. Ernesto denied questions. Complexity Upgraded 2 Descriptor Thumb gentle ROM. Thumb opposition. Palmar thumb abd. Side Right Body Position Seated Sets 1 Repetitions 5 Resistance 1# DB Complexity Upgraded Manual Therapy Manual Therapy Manual therapy to distal R UE. Joint mobilization to facilitate forearm supination, wrist ext/flex, wrist UD/RD; mobs to R wrist carpals. - Assessment Patient Response to Treatment Good Rehab Potential Good Impairments Identified ADLs,Coordination/Dexterity, Functional Activities,Pain, Recreational Activities, Meaningful Activities, Stiffness,Swelling,Soft Tissue Mobility,Motor Planning Assessment of Improvement Weight lifting restrictions removed. Initiated wrist eccentric strengthening w/ utilization of dumbbell. Gentle AROM for thumb recommended; pain/discomfort in R thumb w/ resisted movement. Decreasing pain/ discomfort of wrist. Recommend advancing HEP/treatment activities as tolerated. Home Exercise Program Please refer to treatment section of note for specific details. Reviewed with Patient/Caregiver Goals,Home Exercise Program Patient/Caregiver Understanding Good - Plan Therapy Recommendations Continue with Current Program, Advance per Rehabilitation Protocol
--- NOTE | 2019-11-06 13:56 | OT.OP.REEVAL ---
Visit Care Team Role Provider Type Zuhair Brunner Attending Provider Non-Staff Primary Care Provider Address: [address] [place] [address], [place], [address] Fax: Email: OT Outpatient OT Outpatient Adult Evaluation Start: 08/10/19 11:46 Freq: Status: Active Protocol: Document 08/07/19 12:30 AMS (Rec: 08/10/19 12:32 AMS [email or web address]) General Information Session Time Visit Start Time 10:30 Visit Stop Time 11:18 Total Visit Minutes 48 Visit Information Visit Number Eval Plan of Care Dates 08/07/19-10/30/19 Insurance Information 1 Eval; 12 visits Setting Treatment Setting Outpatient Care Visit Type Note Type Initial Evaluation Referral Referring Physician Zuhair Brunner MD; 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 Identification Identification Confirmed Yes: Photo ID Medical Information Medical History Health History form completed and placed in paper chart. Significant for back pain; headaches; jaw pain; neck pain ; scoliosis; minor damage to stomach lining. 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 Did not receive therapy for injury, however, splint was recommended. Unable to use splint at work (d/t regulations). Bilateral splints have been previously recommended. Previous Therapy History of Therapy Physical therapy for scoliosis . Therapy Pain Assessment Pain When Pain Assessed pre-tx Pain Present Pain Present Pain Reported Location Left Wrist Intensity 2 Scale Used Numeric (1 - 10) Right Wrist Scale Used 3-6 central; 2 radial/ulnar ( volar surface) Goals Objective Measurements Objective Measurements (+) R Roverto's. (-) current use of splint. Short Term Goals Short Term Goals 1. 4+/5 MMT R wrist flexion 2. 4+/5 MMT R wrist extension 3. 4+/[address]/UD Breeder Service Technician Goals Breeder Service Technician Goals 1. Ernesto will be modified independent with distal upper extremity home exercise program utilizing provided written and visual instructions. 2. Ernesto will present with increased ability to actively engage in meaningful daily activities, as evidenced by reduction in pain symptoms. Ernesto aki indicate 1-2/10 on Pain Assessment Grid. 3. Ernesto will present with increased ability to actively engage in meaningful activities, as evidenced by ability to complete light meal preparation activities without complaints of pain/ discomfort with modified independence (e.g., opening jars, mixing ingredients). 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 PMH: significant for back pain; headaches; jaw pain; neck pain; scoliosis; minor damage to stomach lining . 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 Did not receive therapy for injury, however, splint was recommended. Unable to use splint at work (d/t regulations). Bilateral splints have been previously recommended. Evaluation findings: R hand dominant; pain/discomfort of distal R UE; (-) use of splint currently; h/o injury to R wrist without treatment; (-) Phalens B; (+) R Finkelsteins; able to oppose R thumb to base of R 5th digit w/ minor stretch/discomfort; slight R thumb swelling; decreased functional object manipulation abilities verbally reported secondary to pain/discomfort/ weakness; increased stiffness w/ tendency towards slight forearm pronation; decreased R wrist strength; decreased R thumb strength; modifications to day-to-day life d/t pain/ discomfort and weakness; decreased ability to engage in meaningful activities secondary to symptoms. Outpatient OT is recommended to address symptoms in order to maximize patient's ability to successfully engage in meaningful daily activities in a variety of environments. Home Exercise Program Initiated home exercise program. Instructed in passive wrist flexion, extension and radial deviation exercises with elbow near full extension . Reviewed with Patient Home Exercise Program Plan Comment 12 weeks Treatment Frequency Once a Week Therapeutic Contents Active Range of Motion, Adaptive Equipment Education, Client Education,Cognitive Skills Development,Functional Activities,Home Exercise Program,Joint Protection, Manual Therapy,Education, Neurodevelopment Treatment, Neuromuscular Re-Education, Self-Care,Splinting,Stretching /Flexibility Activities, Therapeutic Activities, Therapeutic Exercises, Modalities,Sensory Re- education Types of Modalities Contrast Bath,E-Stim, Functional Stimulation (FES), Ice Massage,Low Level Laser,T. E.N. Stimulation,TENS Placement/Application, Ultrasound Additional Types of Modalities Heat Patient Instruction Home Exercise Program,Plan of Care,Questions/Concerns,Other Sensory Assessment Sensory Profile2 Functional Wrist/Hand Scan Hand Side OT Outpatient Muscle Testing Start: 08/10/19 11:46 Freq: Status: Active Protocol: Document 11/06/19 13:43 AMS (Rec: 11/06/19 13:55 AMS [email or web address]) Wrist Strength Wrist Manual Muscle Testing Left Flexion (C7) 5 Normal Extension (C6) 5 Normal Ulnar Deviation 4+ Good+ Radial Deviation 4+ Good+ Right Flexion (C7) 4- Good- Extension (C6) 3+ Fair+ Ulnar Deviation 3+ Fair+ Radial Deviation 3+ Fair+ Licensed Mortgage Loan Officer/Hand Strength Licensed Mortgage Loan Officer/Hand Strength Left Licensed Mortgage Loan Officer Dynamometer II 45.7 Lateral Pinch Strengh (lbs) 19.0 Right Licensed Mortgage Loan Officer Dynamometer II 44.7 Lateral Pinch Strengh (lbs) 17.8 OT Outpatient Range of Motion Start: 08/10/19 11:46 Freq: Status: Active Protocol: Document 11/06/19 13:43 AMS (Rec: 11/06/19 13:55 AMS [email or web address]) ROM - Elbow/Forearm Elbow/Forearm Measured in Degrees Left Active Elbow/Forearm ROM WFL Yes Right Active Elbow/Forearm ROM WFL Yes ROM - Wrist Wrist Range of Motion Measured in Degrees Left Active Wrist Flex AROM (degrees) 0-75 Wrist Ext AROM Fingers Open (degrees) 0-75 Ulnar Deviation AROM (degrees) 0-35 Radial Deviation AROM (degrees) 0-15 Right Active Wrist Flex AROM (degrees) 0-75 Wrist Ext AROM Fingers Open (degrees) 0-70 Ulnar Deviation AROM (degrees) 0-35 Radial Deviation AROM (degrees) 0-10 OT Outpatient Treatment Note - Adult Start: 08/10/19 11:46 Freq: Status: Active Protocol: Document 11/06/19 13:43 AMS (Rec: 11/06/19 13:55 AMS [email or web address]) OT Outpatient Adult Treatment Note Session Time Visit Start Time 08:30 Visit Stop Time 09:15 Total Visit Minutes 45 Visit Information Visit Number 07/13 Plan of Care Dates 10/30/19-12/11/2019 Insurance Information 1 Eval; 12 visits Setting Treatment Setting Outpatient Care Visit Type Note Type Treatment Note General Information General Information Patient is a right hand dominant 28 year-old male referred to outpatient OT by PCP secondary to 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 PMH: significant for back pain; headaches; jaw pain; neck pain; scoliosis; minor damage to stomach lining . 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 Did not receive therapy for injury, however, splint was recommended. Unable to use splint at work (d/t regulations). Bilateral splints have been previously recommended. 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 Chief Complaint(s) Restricts Patient/Caregiver Compliance with Home Good Exercise Program Comments w/ written and visual instructions - Objective Objective Measurements QuickDASH UE Outcome Measure Completed - 08/11/19. Score = 20.45 Short Term Goals 1. 4+/5 MMT R wrist flexion 2. 4+/5 MMT R wrist extension 3. 4+/[address]/UD Breeder Service Technician Goals 1. Ernesto will be modified independent with distal upper extremity home exercise program utilizing provided written and visual instructions. 2. Ernesto will present with increased ability to actively engage in meaningful daily activities, as evidenced by reduction in pain symptoms. Ernesto aki indicate 1-2/10 on Pain Assessment Grid. = 50% met; 3/10 3. Ernesto will present with increased ability to actively engage in meaningful activities, as evidenced by ability to complete light meal preparation activities without complaints of pain/ discomfort with modified independence (e.g., opening jars, mixing ingredients). 4. Ernesto will present with increased ability to actively engage in meaningful activities, as evidenced by obtaining a score of 10.00 or less on QuickDASH UE Outcome Measure. - Treatment 2 Descriptor Joint mobilization. Facilitation of wrist flex, wrist ext, wrist RD/UD. Mobility of carpals/radial side focus. 1 Descriptor Ultrasound. 2.0 w/cm2. 20% duty cycle. x 10 minutes. Radial volar surface of right wrist to address inflammation/ swelling. Skin intact pre- and post-treatment. Exercises 4 Descriptor Eccentric strengthening of wrist. Wrist ext. Wrist flex. Wrist RD. Side Right Body Position Seated Sets 1 Repetitions 10 Resistance 1# DB Complexity Upgraded 3 Descriptor Home exercise program/Plan of Care. Reviewed familiar eccentric DB strengthening exercises for wrist flexion/ wrist extension; initiated eccentric wrist RD strengthening. Education re: use of DB to support stretch w / forearm in supination. Visual/written instructions provided to assist w/ carry- over. Ernesto denied questions. Complexity Upgraded 2 Descriptor Thumb gentle ROM. Thumb opposition. Palmar thumb abd. 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 Blood work currently being completed by MD to assess for presence of autoimmune disease . Bilateral ankle and right knee pain reported; recommended following-up w/ PCP re: these symptoms and considering outpatient PT to address symptoms. Have transitioned to eccentric strengthening exercises; able to progress on this date w/ addition of new eccentric strengthening exercise w/ focus on positioning of wrist in neutral. Patient would likely continue to benefit from outpatient OT to maximize success w/ active engagement in meaningful activities w/ therapist addressing weakness, body mechanics, stability. Recommend advancing HEP/ treatment activities as tolerated. Home Exercise Program Please refer to treatment section of note for specific details. Reviewed with Patient/Caregiver Goals,Home Exercise Program Patient/Caregiver Understanding Good - Plan Therapy Recommendations Continue with Current Program, Advance per Rehabilitation Protocol Comment 6 weeks Frequency of Treatment Once a Week Therapeutic Contents Active Range of Motion, Adaptive Equipment Education, Client Education,Cognitive Skills Development,Functional Activities,Home Exercise Program,Joint Protection, Manual Therapy,Education, Neurodevelopment Treatment, Neuromuscular Re-Education, Self-Care,Stretching/ Flexibility Activities, Therapeutic Activities, Therapeutic Exercises, Modalities,Sensory Re- education Modalities As Needed,As Prescribed Types of Modalities Contrast Bath,E-Stim, Functional Stimulation (FES), Ice Massage,T.E.N. Stimulation ,TENS Placement/Application, Ultrasound Additional Types of Modalities Paraffin; Heat
--- NOTE | 2019-11-27 10:14 | OT.OP.TRT ---
Visit Care Team Role Provider Type Zuhair Alanvincentmissael Attending Provider Non-Staff Primary Care Provider Specialty: Medical Address: [address] [place] [address], [place], [address] Fax: Email: Occupational Therapy Treatment Note OT Outpatient Treatment Note - Adult Start: 08/10/19 11:46 Freq: Status: Active Protocol: Document 11/27/19 09:27 AMS (Rec: 11/27/19 09:34 AMS [email or web address]) OT Outpatient Adult Treatment Note Session Time Visit Start Time 07:30 Visit Stop Time 08:15 Total Visit Minutes 45 Visit Information Visit Number 08/13 Plan of Care Dates 10/30/19-12/11/2019 Insurance Information 1 Eval; 12 visits Setting Treatment Setting Outpatient Care Visit Type Note Type Treatment Note General Information General Information Patient is a right hand dominant 28 year-old male referred to outpatient OT by PCP secondary to 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 PMH: significant for back pain; headaches; jaw pain; neck pain; scoliosis; minor damage to stomach lining . 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 Did not receive therapy for injury, however, splint was recommended. Unable to use splint at work (d/t regulations). Bilateral splints have been previously recommended. - Subjective Identification Type Name,Picture Identification Reconciled With Medical Record Observations I gave my 2 week notice at work; tomorrow is my last day. 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 All they had was a 2 -pound weight; I think it is too much. I will get a assembler insulator , 1-pound dumbbell per Ernesto. Chief Complaint(s) Restricts Patient/Caregiver Compliance with Home Good Exercise Program Comments w/ written and visual instructions - Objective Objective Measurements QuickDASH UE Outcome Measure Completed - 08/11/19. Score = 20.45 Short Term Goals 1. 4+/5 MMT R wrist flexion 2. 4+/5 MMT R wrist extension 3. 4+/[address]/UD Chcf Goals 1. Ernesto will be modified independent with distal upper extremity home exercise program utilizing provided written and visual instructions. 2. Ernesto will present with increased ability to actively engage in meaningful daily activities, as evidenced by reduction in pain symptoms. Ernesto aki indicate 1-2/10 on Pain Assessment Grid. = 50% met; 02/08 3. Ernesto will present with increased ability to actively engage in meaningful activities, as evidenced by ability to complete light meal preparation activities without complaints of pain/ discomfort with modified independence (e.g., opening jars, mixing ingredients). 4. Ernesto will present with increased ability to actively engage in meaningful activities, as evidenced by obtaining a score of 10.00 or less on QuickDASH UE Outcome Measure. - Treatment 2 Descriptor Joint mobilization. Facilitation of wrist flex, wrist ext, wrist RD/UD. Mobility of carpals/radial side focus. 1 Descriptor Ultrasound. 2.2 w/cm2. 20% duty cycle. x 8 minutes. Applied to volar surface of palm to address inflammation/ swelling. Skin intact pre- and post-treatment. Exercises 5 Descriptor Wrist ext w/ sh positioned in 90 degrees flexion and w/ elbow extended. Side Right Body Position Seated Sets 2 Repetitions 10 Resistance 1# DB Complexity Upgraded 4 Descriptor Eccentric strengthening of wrist. Wrist ext. Wrist flex. Wrist RD. Side Right Body Position Seated Sets 2 Repetitions 10 Resistance 1# DB Complexity Upgraded 3 Descriptor Home exercise program/Plan of Care. Reviewed eccentric DB strengthening exercises for wrist flexion/wrist extension/ wrist RD strengthening. Initiated strengthening w/ sh in 90 degrees flex and elbow extended in prep for return to local gym. Ernesto denied need for visual and/or written instructions. Recommended use of 1# DB. Reviewed outpatient policy re: attendance. Ernesto denied questions. Complexity Upgraded 2 Descriptor Thumb gentle ROM. Thumb opposition. Palmar thumb abd. - Assessment Patient Response to Treatment Good Rehab Potential Good Assessment of Improvement Utilization of 2# DB based on availability of strengthening equipment led to increased hand/thumb pain and discomfort ; recommended utilization of 1 # DB. Education was completed re: avoidance of heavy weights w/ return to gym given discomfort experience w/ 2# DB w/ wrist strengthening; recommended focusing on strengthening distal UEs in preparation for larger muscle group strengthening. Initiated wrist strengthening away from base of support to support return to larger weights. Patient would likely continue to benefit from outpatient OT to maximize success w/ active engagement in meaningful activities w/ therapist addressing weakness, body mechanics, stability. Recommend advancing HEP/ treatment activities as tolerated. Home Exercise Program Please refer to treatment section of note for specific details. Reviewed with Patient/Caregiver Goals,Home Exercise Program Patient/Caregiver Understanding Good - Plan Therapy Recommendations Continue with Current Program, Advance per Rehabilitation Protocol
--- NOTE | 2019-12-03 14:30 | OT.OP.TRT ---
Visit Care Team Role Provider Type Zuhair Alanlucianaruma Attending Provider Non-Staff Primary Care Provider Specialty: Medical Address: [address] [place] [address], [place], [address] Fax: Email: Occupational Therapy Treatment Note OT Outpatient Treatment Note - Adult Start: 08/10/19 11:46 Freq: Status: Active Protocol: Document 12/03/19 14:30 AMS (Rec: 12/07/19 13:20 AMS [email or web address]) OT Outpatient Adult Treatment Note Session Time Visit Start Time 13:30 Visit Stop Time 14:15 Total Visit Minutes 45 Visit Information Visit Number 09/12 Plan of Care Dates 10/30/19-12/11/2019 Insurance Information 1 Eval; 12 visits Setting Treatment Setting Outpatient Care Visit Type Note Type Treatment Note General Information General Information Patient is a right hand dominant 28 year-old male referred to outpatient OT by PCP secondary to 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 PMH: significant for back pain; headaches; jaw pain; neck pain; scoliosis; minor damage to stomach lining . 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 Did not receive therapy for injury, however, splint was recommended. Unable to use splint at work (d/t regulations). Bilateral splints have been previously recommended. - Subjective Identification Type Name,Picture Identification Reconciled With Medical Record Observations I still have not gotten a 1- pound dumbbell. I think that is what is really irritating my wrist per Ernesto. Chief Complaint(s) Restricts Patient/Caregiver Compliance with Home Good Exercise Program Comments w/ written and visual instructions - Objective Objective Measurements QuickDASH UE Outcome Measure Completed - 08/11/19. Score = 20.45 Short Term Goals 1. 4+/5 MMT R wrist flexion 2. 4+/5 MMT R wrist extension 3. 4+/[address]/UD Erp Implementation Consultant Goals 1. Ernesto will be modified independent with distal upper extremity home exercise program utilizing provided written and visual instructions. 2. Ernesto will present with increased ability to actively engage in meaningful daily activities, as evidenced by reduction in pain symptoms. Ernesto aki indicate 1-2/10 on Pain Assessment Grid. = 50% met; 3/10 3. Ernesto will present with increased ability to actively engage in meaningful activities, as evidenced by ability to complete light meal preparation activities without complaints of pain/ discomfort with modified independence (e.g., opening jars, mixing ingredients). 4. Ernesto will present with increased ability to actively engage in meaningful activities, as evidenced by obtaining a score of 10.00 or less on QuickDASH UE Outcome Measure. - Treatment 2 Descriptor Joint mobilization. Facilitation of wrist flex, wrist ext, wrist RD/UD. Mobility of carpals/radial side focus. 1 Descriptor Ultrasound. 2.2 w/cm2. 20% duty cycle. x 8 minutes. Applied to volar surface of palm to address inflammation/ swelling. Skin intact pre- and post-treatment. Exercises 6 Descriptor Weight bearing. Wall push-ups. 1 x 10. Complexity Upgraded 5 Descriptor Wrist ext w/ sh positioned in 90 degrees flexion and w/ elbow extended. Side Right Body Position Seated Sets 2 Repetitions 10 Resistance 1# DB Complexity Upgraded 4 Descriptor Eccentric strengthening of wrist. Wrist ext. Wrist flex. Wrist RD. Side Right Body Position Seated Sets 2 Repetitions 10 Resistance 1# DB 3 Descriptor Home exercise program/Plan of Care. Reviewed eccentric DB strengthening exercises for wrist flexion/wrist extension/ wrist RD strengthening. Initiated strengthening w/ sh in 90 degrees flex and elbow extended in prep for return to local gym. Ernesto denied need for visual and/or written instructions. Recommended use of 1# DB. Reviewed outpatient policy re: attendance. Ernesto denied questions. Complexity Upgraded 2 Descriptor Thumb gentle ROM. Thumb opposition. Palmar thumb abd. - Assessment Patient Response to Treatment Good Rehab Potential Good Assessment of Improvement Initiated body weight strengthening exercises; verbally instructed in progression from wall -> floor . Reviewed importance of utilization of proper weight. Patient would likely continue to benefit from outpatient OT to maximize success w/ active engagement in meaningful activities w/ therapist addressing weakness, body mechanics, stability. Recommend advancing HEP/ treatment activities as tolerated. Home Exercise Program Please refer to treatment section of note for specific details. Reviewed with Patient/Caregiver Goals,Home Exercise Program Patient/Caregiver Understanding Good - Plan Therapy Recommendations Continue with Current Program, Advance per Rehabilitation Protocol
--- NOTE | 2019-12-11 15:30 | OT.OP.TRT ---
Visit Care Team Role Provider Type Zuhair Alanvincentmissael Attending Provider Non-Staff Primary Care Provider Specialty: Medical Address: [address] [place] [address], [place], [address] Fax: Email: Occupational Therapy Treatment Note OT Outpatient Treatment Note - Adult Start: 08/10/19 11:46 Freq: Status: Active Protocol: Document 12/11/19 15:30 AMS (Rec: 12/18/19 13:27 AMS [email or web address]) OT Outpatient Adult Treatment Note Session Time Visit Start Time 13:30 Visit Stop Time 14:15 Total Visit Minutes 45 Visit Information Visit Number 09/12 Plan of Care Dates 10/30/19-12/11/2019 Insurance Information 1 Eval; 12 visits Setting Treatment Setting Outpatient Care Visit Type Note Type Treatment Note General Information General Information Patient is a right hand dominant 28 year-old male referred to outpatient OT by PCP secondary to 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 PMH: significant for back pain; headaches; jaw pain; neck pain; scoliosis; minor damage to stomach lining . 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 Did not receive therapy for injury, however, splint was recommended. Unable to use splint at work (d/t regulations). Bilateral splints have been previously recommended. - Subjective Identification Type Name,Picture Identification Reconciled With Medical Record Observations My doctor thinks that I have carpal tunnel. Yeah, he did that test per Ernesto in re : reverse Phalen's Test. He is going to have me get an EMG . He wants me to continue with OT. Chief Complaint(s) Restricts Patient/Caregiver Compliance with Home Good Exercise Program Comments w/ written and visual instructions - Objective Objective Measurements MMT testing completed this date. Please refer to standardized muscle testing section of note for specific details. Please refer to below for progress towards meeting established OT goals. QuickDASH UE Outcome Measure Completed - 08/11/19. Score = 20.45 Short Term Goals 1. 5/5 MMT R wrist flexion 2. 5/5 MMT R wrist extension 3. 5/[address] 4. 5/5 MMT R wrist UD GOALS MET 4+/5 MMT R wrist flex. *MET 09/20 4+/5 MMT R wrist ext. *MET 09/20 4+/[address] *MET 12/11 4+/5 MMT R wrist UD. *MET 12/11 Group Home Goals 1. Ernesto will be modified independent with distal upper extremity home exercise program utilizing provided written and visual instructions. 2. Ernesto will present with increased ability to actively engage in meaningful daily activities, as evidenced by reduction in pain symptoms. Erensto aki indicate 1-2/10 on Pain Assessment Grid. = 50% met; 310 3. Ernesto will present with increased ability to actively engage in meaningful activities, as evidenced by ability to complete light meal preparation activities without complaints of pain/ discomfort with modified independence (e.g., opening jars, mixing ingredients). 4. Ernesto will present with increased ability to actively engage in meaningful activities, as evidenced by obtaining a score of 10.00 or less on QuickDASH UE Outcome Measure. - Treatment 2 Descriptor Joint mobilization. Facilitation of wrist flex, wrist ext, wrist RD/UD. Mobility of carpals/radial side focus. 1 Descriptor Ultrasound. 2.2 w/cm2. 20% duty cycle. x 8 minutes. Applied to volar surface of palm to address inflammation/ swelling. Skin intact pre- and post-treatment. Exercises 6 Descriptor Weight bearing. Wall push-ups. 1 x 10. Complexity Upgraded 4 Descriptor Eccentric strengthening of wrist. Wrist ext. Wrist flex. Wrist RD. Side Right Body Position Seated Sets 2 Repetitions 10 Resistance 1# DB 3 Descriptor Home exercise program/Plan of Care. Instructed in median nerve glides. Discomfort reported gentle stretching of thumb for glide; thus, recommended yo-yo gliding of median nerve. Reviewed conservative methods for swelling management, including contrast baths. Reviewed passive wrist ROM exercises and recommended night time splint. Ernesto denied questions. Complexity Upgraded 2 Descriptor Thumb gentle ROM. Thumb opposition. Palmar thumb abd. - Assessment Patient Response to Treatment Good Rehab Potential Good Assessment of Improvement Improving strength of R wrist; short term goals met in this area. Advanced goals. EMG testing to be completed d/t concerns re: median nerve compression. Continued c/o pain/discomfort; decreased overall strength. Recommend advancing HEP/treatment activities as tolerated. Home Exercise Program Please refer to treatment section of note for specific details. Reviewed with Patient/Caregiver Goals,Home Exercise Program Patient/Caregiver Understanding Good - Plan Therapy Recommendations Continue with Current Program, Advance per Rehabilitation Protocol
--- NOTE | 2020-01-19 15:30 | OT.OP.REEVAL ---
Visit Care Team Role Provider Type Zuhair Brunner Attending Provider Non-Staff Primary Care Provider Address: [address] [place] [address], [place], [address] Fax: Email: OT Outpatient OT Outpatient Adult Evaluation Start: 08/10/19 11:46 Freq: Status: Active Protocol: Document 08/07/19 12:30 AMS (Rec: 08/10/19 12:32 AMS [email or web address]) General Information Session Time Visit Start Time 10:30 Visit Stop Time 11:18 Total Visit Minutes 48 Visit Information Visit Number Eval Plan of Care Dates 08/07/19-10/30/19 Insurance Information 1 Eval; 12 visits Setting Treatment Setting Outpatient Care Visit Type Note Type Initial Evaluation Referral Referring Physician Zuhair Brunner MD; [facility] [place] Precautions 28 y.o male w/ 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 Identification Identification Confirmed Yes: Photo ID Medical Information Medical History Health History form completed and placed in paper chart. Significant for back pain; headaches; jaw pain; neck pain ; scoliosis; minor damage to stomach lining. History of injuring right wrist in 2010 d /t manipulating meat hanger. Did not receive therapy for injury, however, splint was recommended. Unable to use splint at work (d/t regulations). Bilateral splints have been previously recommended. Previous Therapy History of Therapy Physical therapy for scoliosis . Therapy Pain Assessment Pain When Pain Assessed pre-tx Pain Present Pain Present Pain Reported Location Left Wrist Intensity 2 Scale Used Numeric (1 - 10) Right Wrist Scale Used 3-6 central; 2 radial/ulnar ( volar surface) Goals Objective Measurements Objective Measurements (+) R Roverto's. (-) current use of splint. Short Term Goals Short Term Goals 1. 4+/5 MMT R wrist flexion 2. 4+/5 MMT R wrist extension 3. 4+/[address]/UD Stem Roller Goals Stem Roller Goals 1. Ernesto will be modified independent with distal upper extremity home exercise program utilizing provided written and visual instructions. 2. Ernesto will present with increased ability to actively engage in meaningful daily activities, as evidenced by reduction in pain symptoms. Ernesto aki indicate 1-2/10 on Pain Assessment Grid. 3. Ernesto will present with increased ability to actively engage in meaningful activities, as evidenced by ability to complete light meal preparation activities without complaints of pain/ discomfort with modified independence (e.g., opening jars, mixing ingredients). 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 PMH: significant for back pain; headaches; jaw pain; neck pain; scoliosis; minor damage to stomach lining . History of injuring right wrist in 2010 d/t manipulating meat hanger. Did not receive therapy for injury, however, splint was recommended. Unable to use splint at work (d/t regulations). Bilateral splints have been previously recommended. Evaluation findings: R hand dominant; pain/discomfort of distal R UE; (-) use of splint currently; h/o injury to R wrist without treatment; (-) Phalens B; (+) R Finkelsteins; able to oppose R thumb to base of R 5th digit w/ minor stretch/discomfort; slight R thumb swelling; decreased functional object manipulation abilities verbally reported secondary to pain/discomfort/ weakness; increased stiffness w/ tendency towards slight forearm pronation; decreased R wrist strength; decreased R thumb strength; modifications to day-to-day life d/t pain/ discomfort and weakness; decreased ability to engage in meaningful activities secondary to symptoms. Outpatient OT is recommended to address symptoms in order to maximize patient's ability to successfully engage in meaningful daily activities in a variety of environments. Home Exercise Program Initiated home exercise program. Instructed in passive wrist flexion, extension and radial deviation exercises with elbow near full extension . Reviewed with Patient Home Exercise Program Plan Comment 12 weeks Treatment Frequency Once a Week Therapeutic Contents Active Range of Motion, Adaptive Equipment Education, Client Education,Cognitive Skills Development,Functional Activities,Home Exercise Program,Joint Protection, Manual Therapy,Education, Neurodevelopment Treatment, Neuromuscular Re-Education, Self-Care,Splinting,Stretching /Flexibility Activities, Therapeutic Activities, Therapeutic Exercises, Modalities,Sensory Re- education Types of Modalities Contrast Bath,E-Stim, Functional Stimulation (FES), Ice Massage,Low Level Laser,T. E.N. Stimulation,TENS Placement/Application, Ultrasound Additional Types of Modalities Heat Patient Instruction Home Exercise Program,Plan of Care,Questions/Concerns,Other Sensory Assessment Sensory Profile2 Functional Wrist/Hand Scan Hand Side OT Outpatient Muscle Testing Start: 08/10/19 11:46 Freq: Status: Active Protocol: Document 01/19/20 15:30 AMS (Rec: 01/20/20 09:06 AMS [email or web address]) Wrist Strength Wrist Manual Muscle Testing Left Flexion (C7) 5 Normal Extension (C6) 5 Normal Ulnar Deviation 4+ Good+ Radial Deviation 4+ Good+ Right Flexion (C7) 4+ Good+ Extension (C6) 4+ Good+ Ulnar Deviation 4+ Good+ Radial Deviation 4+ Good+ Comments MMT re-tested 12/18/19 Job Coaching/Hand Strength Job Coaching/Hand Strength Left Job Coaching Dynamometer II 45.7 Lateral Pinch Strengh (lbs) 19.0 Right Job Coaching Dynamometer II 44.7 Lateral Pinch Strengh (lbs) 17.8 OT Outpatient Range of Motion Start: 08/10/19 11:46 Freq: Status: Active Protocol: Document 01/19/20 15:30 AMS (Rec: 01/20/20 09:06 AMS [email or web address]) ROM - Elbow/Forearm Elbow/Forearm Measured in Degrees Left Active Elbow/Forearm ROM WFL Yes Right Active Elbow/Forearm ROM WFL Yes ROM - Wrist Wrist Range of Motion Measured in Degrees Left Active Wrist Flex AROM (degrees) 0-75 Wrist Ext AROM Fingers Open (degrees) 0-75 Ulnar Deviation AROM (degrees) 0-35 Radial Deviation AROM (degrees) 0-15 Right Active Wrist Flex AROM (degrees) 0-75 Wrist Ext AROM Fingers Open (degrees) 0-70 Ulnar Deviation AROM (degrees) 0-35 Radial Deviation AROM (degrees) 0-10 OT Outpatient Treatment Note - Adult Start: 08/10/19 11:46 Freq: Status: Active Protocol: Document 01/19/20 15:30 AMS (Rec: 01/20/20 09:06 AMS [email or web address]) OT Outpatient Adult Treatment Note Session Time Visit Start Time 13:30 Visit Stop Time 14:15 Total Visit Minutes 45 Visit Information Plan of Care Dates 12/11/19-03/04/20 Insurance Information 1 Eval; 12 visits Setting Treatment Setting Outpatient Care Visit Type Note Type Treatment Note General Information General Information Patient is a right hand dominant 28 year-old male referred to outpatient OT by PCP secondary to 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 PMH: significant for back pain; headaches; jaw pain; neck pain; scoliosis; minor damage to stomach lining . History of injuring right wrist in 2010 d/t manipulating meat hanger. Did not receive therapy for injury, however, splint was recommended. Unable to use splint at work (d/t regulations). Bilateral splints have been previously recommended. - Subjective Identification Type Name,Picture Identification Reconciled With Medical Record Observations I did the EMG testing. It did not find anything. The doctor just wants me to keep doing therapy per Ernesto. I think that I am definitely getting stronger. I still can' t Chief Complaint(s) Restricts Patient/Caregiver Compliance with Home Good Exercise Program Comments w/ written and visual instructions - Objective Objective Measurements Please refer to below for progress towards meeting established OT goals. QuickDASH UE Outcome Measure Completed - 08/11/19. Score = 20.45 QuickDASH UE Outcome Measure Completed - 01/19/20. Score = 50.00 Pain Assessment Grid Completed - 01/19/20; 3-4/10 on pain scale; see paper chart for details Short Term Goals 1. 5/5 MMT R wrist flexion 2. 5/5 MMT R wrist extension 3. 5/[address] 4. 5/5 MMT R wrist UD GOALS MET 4+/5 MMT R wrist flex. *MET 09/20 4+/5 MMT R wrist ext. *MET 09/20 4+/[address] *MET 12/11 4+/5 MMT R wrist UD. *MET 12/11 Stem Roller Goals 1. Ernesto will be modified independent with distal upper extremity home exercise program utilizing provided written and visual instructions. 2. Ernesto will present with increased ability to actively engage in meaningful daily activities, as evidenced by reduction in pain symptoms. Ernesto aki indicate 1-2/10 on Pain Assessment Grid. = 50% met; 3-4/10 3. Ernesto will present with increased ability to actively engage in meaningful activities, as evidenced by ability to complete light meal preparation activities without complaints of pain/ discomfort with modified independence (e.g., opening jars, mixing ingredients). = 50% met; able to prepare meals yet, unable to open jars per QuickDASH 4. Ernesto will present with increased ability to actively engage in meaningful activities, as evidenced by obtaining a score of 10.00 or less on QuickDASH UE Outcome Measure. 01/20/20= 25% met - Treatment 2 Descriptor Joint mobilization. Facilitation of wrist flex, wrist ext, wrist RD/UD. 1 Descriptor Ultrasound. 2.2 w/cm2. 20% duty cycle. x 8 minutes. Applied to volar surface of R palm to address inflammation/ swelling. Skin intact pre- and post-treatment. Exercises 6 Descriptor Functional weight bearing. Initiated seated functional weight bearing arm rest level bilaterally. Avoidance of lifting self from chair; 1 x 5 . TT ball hold x 5 sec 1 x 10. Complexity Upgraded 4 Descriptor Eccentric strengthening of wrist. Wrist ext. Wrist flex. Wrist RD. Side Right Body Position Seated Sets 2 Repetitions 10 Resistance 2# DB 3 Descriptor Home exercise program/Plan of Care. Upgraded to utilization of 2# DB w/ HEP. Instructed in functional weight bearing w/ avoidance of exacerbation of pain symptoms (chair w/ B arm rests) and TT hold exercise w/ use of already available equipment in the home. Ernesto denied questions and need for written/visual instructions. Complexity Upgraded 2 Descriptor Thumb gentle ROM. Thumb opposition. Palmar thumb abd. - Assessment Patient Response to Treatment Good Rehab Potential Good Assessment of Improvement Ernesto has demonstrated progress over the last certification period relative to distal UE strength; this is evidenced by patient meeting short term goals in this area, as well as therapist's ability to advance HEP to utilization of 2# DB w/ eccentric strengthening. Ernesto is reporting increasing functional abilities relative to writing which he had been previously avoiding/unable to complete. Patient cont to struggle w/ opening jars and is limited in video tana and handwriting d/t hand/pain. Therapist modified weight bearing/wrist stabilization exercise d/t discomfort reported w/ TT exercise. Recommended functional B arm rest WB and isometric hold at TT. Per patient report, (-) EMG findings; PCP recommended contined therapy. Patient is also presenting with increased joint protection awareness (e .g., use of spring loaded scissors, bright cutter). Despite progress, Ernesto still is limited in his day-to -day life. Continued outpatient therapy is recommended to address strength, dynamic wrist stability, activity tolerance, and functional weight bearing to support his success with active participation in meaningful activities. Recommended activities: dynamic wrist exercises; AE support; functional weight bearing Home Exercise Program Please refer to treatment section of note for specific details. Reviewed with Patient/Caregiver Goals,Home Exercise Program Patient/Caregiver Understanding Good - Plan Therapy Recommendations Continue with Current Program, Advance per Rehabilitation Protocol Comment 12 weeks Frequency of Treatment Once a Week Therapeutic Contents Active Range of Motion, Adaptive Equipment Education, Client Education,Cognitive Skills Development,Functional Activities,Home Exercise Program,Joint Protection, Manual Therapy,Education, Neurodevelopment Treatment, Neuromuscular Re-Education, Self-Care,Stretching/ Flexibility Activities, Therapeutic Activities, Therapeutic Exercises, Modalities Modalities As Needed,As Prescribed Types of Modalities Contrast Bath,E-Stim, Functional Stimulation (FES), Ice Massage,T.E.N. Stimulation ,TENS Placement/Application, Ultrasound Additional Types of Modalities Paraffin, heat
--- NOTE | 2020-02-04 15:30 | OT.OP.TRT ---
Visit Care Team Role Provider Type Zuhair Brunner Attending Provider Non-Staff Primary Care Provider Specialty: Medical Address: [address] [place] [address], [place], [address] Fax: Email: Occupational Therapy Treatment Note OT Outpatient Treatment Note - Adult Start: 08/10/19 11:46 Freq: Status: Active Protocol: Document 02/04/20 15:30 AMS (Rec: 02/05/20 12:09 AMS [email or web address]) OT Outpatient Adult Treatment Note Session Time Visit Start Time 13:30 Visit Stop Time 14:15 Total Visit Minutes 45 Visit Information Plan of Care Dates 12/11/19-03/04/20 Insurance Information 1 Eval; 12 visits Setting Treatment Setting Outpatient Care Visit Type Note Type Treatment Note General Information General Information Patient is a right hand dominant 28 year-old male referred to outpatient OT by PCP secondary to 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 PMH: significant for back pain; headaches; jaw pain; neck pain; scoliosis; minor damage to stomach lining . History of injuring right wrist in 2010 d/t manipulating frozen meat cutter. Did not receive therapy for injury, however, splint was recommended. Unable to use splint at work (d/t regulations). Bilateral splints have been previously recommended. - Subjective Identification Type Name,Picture Identification Reconciled With Medical Record Observations I can definitely tell that my wrist is getting stronger. I have to take breaks but weight bearing is getting better. I can show my how to do push-ups the right way at the wall now per Ernesto. My thumb still seems to get irritated. I have to take breaks when playing my video games. Chief Complaint(s) Restricts Patient/Caregiver Compliance with Home Good Exercise Program Comments w/ written and visual instructions - Objective Objective Measurements Please refer to below for progress towards meeting established OT goals. 0-60 degrees R thumb abduction; 0- 75 degrees L thumb abduction. QuickDASH UE Outcome Measure Completed - 08/11/19. Score = 20.45 QuickDASH UE Outcome Measure Completed - 01/19/20. Score = 50.00 Pain Assessment Grid Completed - 01/19/20; 3-4/10 on pain scale; see paper chart for details Short Term Goals 1. 5/5 MMT R wrist flexion 2. 5/5 MMT R wrist extension 3. 5/[address] 4. 5/5 MMT R wrist UD GOALS MET 4+/5 MMT R wrist flex. *MET 09/20 4+/5 MMT R wrist ext. *MET 09/20 4+/[address] *MET 12/11 4+/5 MMT R wrist UD. *MET 12/11 Probe Operator Goals 1. Ernesto will be modified independent with distal upper extremity home exercise program utilizing provided written and visual instructions. 2. Ernesto will present with increased ability to actively engage in meaningful daily activities, as evidenced by reduction in pain symptoms. Ernesto aki indicate 1-01/11 on Pain Assessment Grid. = 50% met; 3-03/11 3. Ernesto will present with increased ability to actively engage in meaningful activities, as evidenced by ability to complete light meal preparation activities without complaints of pain/ discomfort with modified independence (e.g., opening jars, mixing ingredients). = 50% met; able to prepare meals; yet, unable to open jars per QuickDASH 4. Ernesto will present with increased ability to actively engage in meaningful activities, as evidenced by obtaining a score of 10.00 or less on QuickDASH UE Outcome Measure. 01/20/20= 25% met - Treatment 2 Descriptor Joint mobilization. Facilitation of wrist flex, wrist ext, wrist RD/UD. 1 Descriptor Ultrasound. 2.0 w/cm2. 20% duty cycle. x 8 minutes. Applied to volar surface of R palm to address inflammation/ swelling. Skin intact pre- and post-treatment. No complaints of pain/discomfort from modality reported by patient. Exercises 7 Descriptor Wrist stability. L <-> R. Forward <-> back. Blue balance disk. 6 Descriptor Functional weight bearing. Initiated seated functional weight bearing arm rest level bilaterally. Avoidance of lifting self from chair; 1 x 5 . TT ball hold x 5 sec 1 x 10. Complexity Upgraded 5 Descriptor Thumb strengthening. Rubberband. CMC abduction. D1. 4 Descriptor Eccentric strengthening of wrist. Wrist ext. Wrist flex. Wrist RD. Side Right Body Position Seated Sets 2 Repetitions 10 Resistance 2# DB 3 Descriptor Home exercise program/Plan of Care. Recommended no changes to resistance used with strengthening; recommended working on forward <-> backward and left <-> right weight shifting w/ slightly unstable surface (e.g., cushion). Instructed in manual release to support abduction of thumb; recommended having execute manual masage to webspace to address stiffness. Recommended use of rubberband for CMC abduction and to address D1. Ernesto denied questions. Complexity Upgraded 2 Descriptor Thumb ROM. Manual release. Manual massage. - Assessment Patient Response to Treatment Good Rehab Potential Good Assessment of Improvement Improving tolerance for weight bearing; improving hand strength as evidenced by increased B hogshead dumper strength. Stiffness of R thumb; decreased active thumb abd. Advanced HEP. Ernesto still is limited in his day-to-day life. Continued outpatient therapy is recommended to address strength, dynamic wrist stability, activity tolerance, and functional weight bearing to support his success with active participation in meaningful activities. Recommended activities: dynamic wrist exercises; AE support; functional weight bearing Home Exercise Program Please refer to treatment section of note for specific details. Reviewed with Patient/Caregiver Goals,Home Exercise Program Patient/Caregiver Understanding Good - Plan Therapy Recommendations Continue with Current Program, Advance per Rehabilitation Protocol Occupational Therapy Assessment OT Outpatient Muscle Testing Start: 08/10/19 11:46 Freq: Status: Active Protocol: Document 02/04/20 15:30 AMS (Rec: 02/05/20 12:09 AMS [email or web address]) Wrist Strength Wrist Manual Muscle Testing Left Flexion (C7) 5 Normal Extension (C6) 5 Normal Ulnar Deviation 4+ Good+ Radial Deviation 4+ Good+ Right Flexion (C7) 4+ Good+ Extension (C6) 4+ Good+ Ulnar Deviation 4+ Good+ Radial Deviation 4+ Good+ Comments MMT re-tested 12/18/19 Library Media Assistant/Hand Strength Library Media Assistant/Hand Strength Left Library Media Assistant Dynamometer II 58.7 Lateral Pinch Strengh (lbs) 19.0 Comments *New Library Media Assistant Measurements taken Initial Eval Findings: Avg 45.7# of force with Library Media Assistant II Avg 19.0# of force with L Lateral Pinch Right Library Media Assistant Dynamometer II 59.0 Lateral Pinch Strengh (lbs) 17.8 Comments *New Library Media Assistant Measurements taken Initial Eval Findings: Avg 44.7# of force w/ Library Media Assistant II Avg 17.8# of force w/ R Lateral Pinch
--- NOTE | 2020-02-11 15:30 | OT.OP.TRT ---
Visit Care Team Role Provider Type Zuhairleny Brunner Attending Provider Non-Staff Primary Care Provider Specialty: Medical Address: [address] [place] [address], [place], [address] Fax: Email: Occupational Therapy Treatment Note OT Outpatient Treatment Note - Adult Start: 08/10/19 11:46 Freq: Status: Active Protocol: Document 02/11/20 15:30 AMS (Rec: 02/12/20 10:00 AMS [email or web address]) OT Outpatient Adult Treatment Note Session Time Visit Start Time 12:30 Visit Stop Time 15:15 Total Visit Minutes 45 Visit Information Plan of Care Dates 12/11/19-03/04/20 Setting Treatment Setting Outpatient Care Visit Type Note Type Treatment Note General Information General Information Patient is a right hand dominant 28 year-old male referred to outpatient OT by PCP secondary to 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 PMH: significant for back pain; headaches; jaw pain; neck pain; scoliosis; minor damage to stomach lining . 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 Did not receive therapy for injury, however, splint was recommended. Unable to use splint at work (d/t regulations). Bilateral splints have been previously recommended. - Subjective Identification Type Name,Picture Identification Reconciled With Medical Record Observations My was sent off on detachment so she was unable to help with the massaging. My thumb is still pretty sore. I have been using my phone a lot to text my per Ernesto. Chief Complaint(s) Restricts Patient/Caregiver Compliance with Home Good Exercise Program Comments w/ written and visual instructions - Objective Objective Measurements Please refer to below for progress towards meeting established OT goals. 0-60 degrees R thumb abduction; 0- 75 degrees L thumb abduction. QuickDASH UE Outcome Measure Completed - 08/11/19. Score = 20.45 QuickDASH UE Outcome Measure Completed - 01/19/20. Score = 50.00 Pain Assessment Grid Completed - 01/19/20; 3-4/10 on pain scale; see paper chart for details Short Term Goals 1. 5/5 MMT R wrist flexion 2. 5/5 MMT R wrist extension 3. 5/[address] 4. 5/5 MMT R wrist UD GOALS MET 4+/5 MMT R wrist flex. *MET 09/20 4+/5 MMT R wrist ext. *MET 09/20 4+/[address] *MET 12/11 4+/5 MMT R wrist UD. *MET 12/11 Curb Worker Goals 1. Ernesto will be modified independent with distal upper extremity home exercise program utilizing provided written and visual instructions. 2. Ernesto will present with increased ability to actively engage in meaningful daily activities, as evidenced by reduction in pain symptoms. Ernesto aki indicate 1-01/11 on Pain Assessment Grid. = 50% met; 3-03/11 3. Ernesto will present with increased ability to actively engage in meaningful activities, as evidenced by ability to complete light meal preparation activities without complaints of pain/ discomfort with modified independence (e.g., opening jars, mixing ingredients). = 50% met; able to prepare meals; yet, unable to open jars per QuickDASH 4. Ernesto will present with increased ability to actively engage in meaningful activities, as evidenced by obtaining a score of 10.00 or less on QuickDASH UE Outcome Measure. 01/20/20= 25% met - Treatment 2 Descriptor Joint mobilization. Facilitation of wrist flex, wrist ext, wrist RD/UD. 1 Descriptor Ultrasound. 2.0 w/cm2. 20% duty cycle. x 8 minutes. Applied to volar surface of R palm to address inflammation/ swelling. Skin intact pre- and post-treatment. No complaints of pain/discomfort from modality reported by patient. Exercises 8 Descriptor Wrist strengthening. 2# dumbbell. Wood dowel w/ dumbbell. 1x10. 7 Descriptor Wrist stability. L <-> R. Forward <-> back. Blue balance disk. 6 Descriptor Functional weight bearing. Initiated seated functional weight bearing arm rest level bilaterally. Avoidance of lifting self from chair; 1 x 5 . TT ball hold x 5 sec 1 x 10. Complexity Upgraded 5 Descriptor Thumb strengthening. Rubberband. CMC abduction. D1. 4 Descriptor Eccentric strengthening of wrist. Red flex bar. 1x10 each exercise. 3 Descriptor Home exercise program/Plan of Care. 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 Education avoidance of activities and/or modification of activities that would exacerbate thumb symptoms (e.g ., built-up stylus for phone). Discussed use of object(s) to support stretching of thumb into abd; recommended continued execution of self manual release. Ernesto denied questions. Complexity Upgraded 2 Descriptor Thumb ROM. Manual release. Manual massage. - Assessment Patient Response to Treatment Good Rehab Potential Good Assessment of Improvement Stiffness of R thumb; decreased active thumb abd. ( Education to avoid aggrivation of sx w/ use of phone relative to thumb; discussed alt to strengthen wrist/hand ( flex bar and wood dowel w/ weight). Advanced HEP. Ernesto still is limited in his day-to-day life. Continued outpatient therapy is recommended to address distal UE strength (wrist/hand), dynamic wrist stability, activity tolerance, and functional weight bearing to support his success with active participation in meaningful activities. Recommended activities: dynamic wrist exercises; functional weight bearing; hand/digit strengthening Home Exercise Program Please refer to treatment section of note for specific details. Reviewed with Patient/Caregiver Goals,Home Exercise Program Patient/Caregiver Understanding Good - Plan Therapy Recommendations Continue with Current Program, Advance per Rehabilitation Protocol
== END 2020-07-20 14:15 ==
LOC: OT 12:30
PROVIDERS: PCP Family Medicine; Visit Provider Family Medicine
DX: M25.531 Pain in right wrist (principal)
CPT/HCPCS: 97035; 97110; 97140; 97165

== ENCOUNTER 2024-06-08 11:51 | Day surgery (SDC) | payer OTHER, SELFPAY ==
[2024-05-29 12:29] VITALS: BMI 21.4
--- NOTE | 2024-06-08 | PATH_ITS ---
[facility] Accession Number: [id number] No. of containers..01 Tissue . 01 Material submitted: . endometrium - ENDOMETRIAL CURETTINGS . 01 Diagnosis: ENDOMETRIAL CURETTINGS: Scant glandular elements; negative for significant atypia. No well-preserved endometrial tissue identified; the specimen consists predominantly of blood and fibrin. Please see comment. MRV 06/11/2024 1429 Local . 01 Comment: Due to the scant nature of endometrial tissue in this biopsy, it may not be entirely advertising account representative of this patient's endometrium; additional sampling could be considered, if clinically appropriate. . 01 Electronically signed: . Marisela Lima MD, Pathologist NPI- [id number] . 01 Gross description: . Received in formalin with two patient identifiers and endometrial curettings, are multiple chaparro soft tissue fragments admixed with mucohemorrhagic material aggregating to 3.0 x 1.8 x 0.3 cm. Filtered and submitted in cassette A1. ([id number]) /DK 06/09/2024 0903 Local . 01 Pathologist provided ICD-10: N93.9, R10.2, N94.6, Z30.430 . 01 CPT . 260660 Specimen Comment: A courtesy copy of this report has been sent to [facility] Performed at: [address] [address], [place], [place] [id number] MD Robinson Bush MD Phone: [phone]
[2024-06-08 12:21] VITALS: BMI 21.7
[2024-06-08] MEDS: LACTATED RINGERS 1,000 ML 42 ML IV (12:27)
[2024-06-08 12:30] VITALS: BP 107/70; PULSE 81; RESP 16; TEMP 36.7; O2SAT 100
--- NOTE | 2024-06-08 12:32 | PM.PREOP ---
Pre-operative Note Interval Note History & Physical reviewed/Exam performed by Physician: Yes Changes to H&P: No H&P completed within 30 days and has changed as indicated here:: 05/13/24 ASA Class (for procedural sedation): II
--- NOTE | 2024-06-08 12:32 | SUR.OPER ---
Lithotomy on padded OR bed, head on pillow, arms secured on padded arm boards at <90 degrees abduction. Legs secured in padded yellow fins stirrups.
[2024-06-08 13:34] VITALS: BP 106/69; PULSE 81; RESP 14; TEMP 36.4; O2SAT 100
[2024-06-08 13:39] VITALS: BP 118/70; PULSE 91; RESP 12; O2SAT 100
[2024-06-08 13:44] VITALS: BP 116/77; PULSE 91; RESP 12; O2SAT 100
--- NOTE | 2024-06-08 13:45 | PM.OP.1 ---
Operative Date/Time/Diagnoses Date of procedure: 06/08/24 Time of procedure: 13:45 Pre-op diagnosis: AUB Post-op diagnosis: same Procedure & Clinicians Procedure: hysteroscopy, D&C, placement of LNG-IUD Same procedure as scheduled: Yes Indications: AUB Surgeon: Vianney Upton Click Yes if Unassisted: No Anesthesia Type: General Operative Notes Findings: external female genitalia with evidence of exogenous androgen exposure (clitoralmegaly), violaceous friable appearance to cervix limited visualization of endometrial cavity, no polyp seen Closure Type: not applicable Prosthetic devices, grafts, tissues, transplants, or devices: LNG-IUD obtained from office supply Estimated Blood Loss (mL): 5 Procedure in detail: Pt was taken to the operating room, transferred to OR table and anesthesia was induced with placement of LMA.? Pt had their legs placed in Noam stirrups and an exam under anesthesia was performed. The patient was prepped and draped in a sterile fashion.? A time out was performed. ?The bladder was emptied via straight catheter in sterile fashion with noted superficial trauma of urethral meatus without hemorrhage.? A sterile speculum was unable to be inserted into the vagina due to intact hymen; small sidewall retractors were placed anteriorly and posteriorly with subsequent visualization of the cervix.? The cervix was visualized and grasped anteriorly using a single tooth tenaculum.? The uterus sounded to 7 cm and the cervical os was serially dilated using Carmona dilators up to 17f to allow for passage of the hysteroscope.? The 5mm 0 degree hysteroscope was then inserted into the uterus however was unable to be advanced beyond the internal os secondary to stenosis despite repeated attempts at blunt serial dilation.? The hysteroscope was removed and the uterus was gently probed to confirm the absence of perforation without appreciable defect. The endometrium was then sharply curetted, scant tissue sample passed off the field for permanent study.? The mirena IUD obtained from office supply was then placed per supervisor stripping instructions, strings trimmed to 3cm. The tenaculum was removed and hemostasis was noted at insertion sites.? The speculum was removed and hemostasis was again noted to be excellent.? The patient then had their legs taken out of stirrups.? The patient tolerated the procedure well and without difficulty.? The patient was awakened from anesthesia and taken to PACU in stable condition. Complications: other (superficial injury of urethral meatus at time of straight catheterization) Post-operative Condition: stable Disposition: PACU Plan for aftercare: dc to home, routine IUD check in office 2-6wks
[2024-06-08 13:51] VITALS: BP 114/75; PULSE 93; RESP 12; TEMP 36.6; O2SAT 100
[2024-06-08 13:57] VITALS: BP 113/74; PULSE 94; RESP 12; O2SAT 100
[2024-06-08] MEDS: ONDANSETRON 4 MG/2 ML INJ IV (14:22)
--- NOTE | 2024-06-08 14:28 | SUR.PHASEII ---
Patient dressed but then complained of nausea. IV fluids reconnected and patient medicated with zofran.
--- NOTE | 2024-06-08 14:48 | SUR.PHASEII ---
Patient reported nausea improved. He transferred to the wheelchair independently without nausea worsening. IV discontinued.
== END 2024-06-08 14:46 | disposition home or self-care (01) ==
PROVIDERS: PCP Family Medicine; Referring Provider Obstetrics & Gynecology; Visit Provider Obstetrics & Gynecology
PROC: 0UDB8ZZ Extraction of Endometrium, Via Natural or Artificial Opening Endoscopic (ICD-10-PCS; CPT 58558; principal; 2024-06-08 13:30)
DX: N93.9 Abnormal uterine and vaginal bleeding, unspecified (principal); Z30.430 Encounter for insertion of intrauterine contraceptive device
CPT/HCPCS: 58558; 58300; 81025; J1100; J2250; J2405; J2704; J3010; J7298

== ENCOUNTER → 2024-07-06 10:13 | Outpatient (CLI) | payer OTHER, SELFPAY | PROVIDERS: PCP Family Medicine; Visit Provider Obstetrics & Gynecology | DX: R10.2 Pelvic and perineal pain (principal) | CPT/HCPCS: 87086 ==

== ENCOUNTER 2024-11-16 06:03 | Day surgery (SDC) | payer OTHER, SELFPAY ==
[2024-11-11 13:23] VITALS: BMI 22.8
[2024-11-16] VITALS (19 sets, daily range): BP systolic 77–112; BP diastolic 47–80; PULSE 71–99; RESP 12–97; TEMP 35.9–36.8; O2SAT 18–100; BMI 22.4
--- NOTE | 2024-11-16 | PATH_ITS ---
[facility] Accession Number: [id number] No. of containers..01 Tissue . 01 Material submitted: . uterus - UTERUS, CERVIX, BILATERAL FALLOPIAN TUBES . 01 Diagnosis: UTERUS, CERVIX, BILATERAL FALLOPIAN TUBES; HYSTERECTOMY AND BILATERAL SALPINGECTOMY (PRESERVED OVARIES): Uterine weight: 48 grams. Uterine cervix: Mild chronic cervicitis; negative for dysplasia and malignancy. Endometrium: Weakly proliferative to inactive endometrium; negative for atypia, hyperplasia, or malignancy. Benign bilateral fallopian tubes without pathologic abnormalities. Focal mature adipose tissue compatible with paratubal lipoma (right fallopian tube). Negative for malignancy. MRV 11/18/2024 1609 Local . 01 Electronically signed: . Fabiana Garcia MD, Pathologist NPI- [id number] . 01 Gross description: . Received in formalin with two identifiers and uterus, cervix, tubes, is an intact uterus (48 grams, 7.4 cm superior to inferior, 4.1 cm medial to lateral, 2.8 cm anterior to posterior) with attached cervix (3.1 x 2.9 cm), left fallopian tube(6.4 x 0.5 cm) and right fallopian tube (6.4 x 0.5 cm). . The ectocervix is soto-chaparro and roughened with a patulous os 0.9 cm in diameter. The anterior paracervical margin is inked blue while the posterior paracervical margin is inked black. The serosa is chaparro to violaceous and smooth with no hemorrhage or adhesion identified. The endocervical canal has chaparro herringbone mucosa and measurtes 3.2 cm in length. The endometrial cavity measures 1.4 cm from cornu to cornu, and 3.0 cm in length with pink-chaparro velvety endometrium that averages 0.1 cm thick. The myometrium is chaparro and mildly trabecular with no lesions identified and measures up to 1.5 cm in maximum thickness. . The left tube has violaceous, smooth serosa. The lumen is stellate and unremarkable. The right tube has chaparro smooth serosa with a yellow nodule located near the fimbriated end measuring 1.3 x 1.2 x 1.0 cm. Sectioning reveals a yellow, soft cut surface and a stellate unremarkable lumen. . Social Services sections are submitted as follows: A1: Anterior cervix. A2: Posterior cervix. A3: Anterior full thickness section. A4: Posterior full thickness section. A5: Left fallopian tube to include one-half of bisected fimbriae and cross-sections. A6: Right fallopian tube to include one-half of bisected fimbriae and cross-sections with yellow nodule. ([id number]) /DK 11/18/2024 1609 Local . 01 Pathologist provided ICD-10: N95.0, R10.2, N93.9, Z90.13 . 01 CPT . 816885 Specimen Comment: A courtesy copy of this report has been sent to [facility] Performed at: [address] [address], [place], [place] [id number] MD Robinson Bush MD Phone: [phone]
[2024-11-16] MEDS: LACTATED RINGERS 1,000 ML 42 ML IV (07:06)
--- NOTE | 2024-11-16 07:32 | PM.PREOP ---
Pre-operative Note Interval Note History & Physical reviewed/Exam performed by Physician: No Changes to H&P: Yes ASA Class (for procedural sedation): II
[2024-11-16] MEDS: CLINDAMYCIN 900 MG/50 ML PIGGYBACK 50 MG IV (07:50)
[2024-11-16] MEDS: GENTAMICIN 250 MG in SODIUM CHLORIDE 0.9% 100 ML 106.25 MG IV (07:55)
--- NOTE | 2024-11-16 08:19 | SUR.OPER ---
Lithotomy on padded OR bed. [place] Pad Positioner under torso. Head on pillow, arms padded and tucked at sides. Legs secured in padded yellow fins stirrups.
[2024-11-16] MEDS: BUPIVACAINE 0.25% (PF) 30 ML, EPINEPHrine 0.15 MG INJ (08:41)
[2024-11-16] MEDS: ROPIVACAINE 0.2% PF 2 MG/ML 20ML AMP 20 ML INJ (09:33)
--- NOTE | 2024-11-16 09:51 | PM.OP.1 ---
Operative Date/Time/Diagnoses Date of procedure: 11/16/24 Time of procedure: 07:45 Pre-op diagnosis: AUB, primary dysmenorrhea Post-op diagnosis: same Procedure & Clinicians Procedure: total laparoscopic hysterectomy, cystoscopy Same procedure as scheduled: Yes Indications: primary dysmenorrhea Surgeon: Vianney Upton Director Stage: Zahra Renee Click Yes if Unassisted: No Anesthesia Type: General Operative Notes Findings: androgenized external female genitalia perineum and anus without rash or lesion urethral meatus wnl normal appearing cervix and vagina grossly normal appearing uterus, bilateral fallopian tubes Closure Type: primary Specimen(s): other (uterus, cervix, bilateral fallopian tubes ) Estimated Blood Loss (mL): 25 Blood products transfused: none Procedure in detail: The patient was taken to the operating room, placed on the operating table in the supine position and intubated with ETT.? The patient was then placed in the lithotomy position with his legs in Noam stirrups.? The patient was then examined under anesthesia with the above findings, then prepped and draped in a sterile fashion.? A camilo catheter was placed.? Time out was performed. A sterile speculum was inserted into the vagina.? The anterior cervix was grasped with single tooth tenaculum and under gentle traction the uterus sounded to 7cm.? The medium [employer] manipulator was placed in the standard fashion and the balloon was inflated.? Attention was then turned to the abdominal portion of the case. A 5mm incision was made infraumbilically following infiltration of tissue with 0.25% marcaine with epinephrine for local analgesia. Abdominal entry was achieved under direct visualization using the 5mm VisaPort trocar.? Abdomen was insufflated to 15mmHg.? Two lateral 5-mm ports were placed in a similar manner under direct visualization followed by an additional lateral L trocar for purposes of laparoscopic suturing.? The uterus was anteverted and abdominal survey was noted with findings as noted above. The Powerseal was used to dissect bilateral fallopian tubes away from the mesosalpinx.? The utero-ovarian artery was burned and ligated followed by dissection of the round ligament with the Powerseal device.? This was repeated on the contralateral side.? The uterine arteries were skeletonized and ligated and transected at the level of the cervix. A bladder flap was developed. Using the monopolar hook the colpotomy was made using the VCare as a guide. The uterus, cervix and both fallopian tubes were then removed via the vagina en bloc under direct visualization. 0-0 stratifix suture was introduced into the abdomen via the vagina under direct visualization. A sterile sponge was placed in the vagina and pneumoperitoneum was restored. The vaginal cuff was closed in a running fashion using standard laparoscopic suture technique. The suture was trimmed close to the level of the cuff and the needle and suture were then removed via the laparoscopic port under direct visualization. All wound beds were inspected and noted to be hemostatic. The posterior cul-de-sac was gently irrigated and irrigation fluids were removed with gentle suction. The vaginal cuff and posterior cul-de-sac were then bathed in 20cc of additional bupivicaine for further analgesia. The pneumoperitoneum was released and attention was turned to cystoscopy. The camilo catheter was removed from the urethra. The 70 degree cystoscope was introduced via the urethra without difficulty. The bladder epithelium was visualized circumferentially without evidence of injury or suture from cuff closure. Brisk efflux from bilateral ureteal orifices was visualized and cystoscope removed. Camilo catheter replaced. Attention was once again turned to the abdomen. All trocars were removed from the abdomen. The skin of each incision was reapproximated with 4-0 monocryl followed by application of dermabond. The patient then had his legs taken out of stirrups.? The patient tolerated the procedure well and without difficulty.? The patient was awakened from anesthesia and taken to PACU in stable condition. Complications: none Post-operative Condition: stable Disposition: PACU Plan for aftercare: admit for overnight observation, anticipate dc to home POD1
[2024-11-16] MEDS: ACETAMINOPHEN 325 MG TABLET 650 MG PO ×2 (12:19→18:11)
[2024-11-16] MEDS: ONDANSETRON 4 MG/2 ML INJ IV ×2 (13:14→21:53)
[2024-11-16] MEDS: KETOROLAC 30 MG/ML VIAL IV ×2 (14:17→20:00)
[2024-11-16] MEDS: QUETIAPINE 25 MG TABLET PO (20:00)
[2024-11-16] MEDS: OXYCODONE IR 5 MG TABLET PO (22:22)
[2024-11-17] MEDS: ACETAMINOPHEN 325 MG TABLET 650 MG PO ×2 (01:31→05:48)
[2024-11-17] MEDS: OXYCODONE IR 5 MG TABLET PO (01:32)
[2024-11-17] MEDS: KETOROLAC 30 MG/ML VIAL IV ×2 (03:20→08:22)
[2024-11-17 04:58] LABS: Add Manual Diff / Slide Review NO; Basophils Absolute Auto 0 /uL (0-100); Eosinophils Absolute Auto 0 /uL (0-450); Hematocrit 40.5 % (36-46); Hemoglobin 13.6 g/dL (12.0-16.0); Lymphocytes Absolute Auto 700 /uL (1100-4500); Lymphocytes Percent Auto 4.5 % (25-40); Mean Corpuscular HGB Conc 33.5 % (30-36); Mean Corpuscular Hemoglobin 30.8 PG (26-34); Monocytes Absolute Auto 1000 /uL (0-900); Monocytes Percent Auto 6.7 % (3-14); Neutrophils Absolute Auto 13300 /uL (1500-7000); Neutrophils Percent Auto 88.8 % (50-75); Platelet Count 201 X10^3/uL (150-400); Red Blood Cell Count 4.41 X10^6/uL (4.0-5.2); Red Cell Distribution Width 13.3 % (11.6-14.8); White Blood Cell Count 14.9 X10^3/uL (4.5-11.0)
[2024-11-17] MEDS: ONDANSETRON 4 MG/2 ML INJ IV (05:48)
--- NOTE | 2024-11-17 07:56 | P.DS_ITS ---
History of Present Illness History of Present Illness Date Patient Seen: 11/17/24 Time Patient Seen: 07:56 Date of Onset of Symptoms: 11/16/24 Chief complaint: ACTOR UNDERSTUDY *OPB* Discharge Providers Provider Date of admission: 11/16/24 Discharge Date: 11/17/24 Primary care physician: Quan Stanford DO Discharge provider: Vianney Upton MD Summary Hospital Course Discharge Diagnosis: s/p TLH with bilateral salpinectomy Hospital Course: 33yo nulliparous transgendered male admitted to facility for procedure, total laparoscopic hysterectomy with bilateral salpingectomy for definitive surgical management of primary dysmenorrhea and AUB refractory to conservative management. Patient underwent procedure without complication, see operative dictation. Patient had a subsequently uncomplicated postoperative course, voiding independently and tolerating diet with return of flatus. Vaginal packing removed this AM (POD1) with minimal saturation. Pain well controlled with oral analgesia. Patient discharged to home on POD1 meeting all discharge milestones. Status at Discharge Cognitive/behavioral status at discharge: oriented Functional status at discharge: independent ambulation Overall status at discharge: patient is back to baseline Time Spent with Patient Time spent: Less than 30 minutes Exam Vital Signs (past 8 hours): Oxygen Delivery Method Room Air Oxygen Flow Rate 0 Const General: cooperative, healthy appearing and comfortable Nutritional Appearance: average body habitus Orientation: alert, awake and oriented x3 Limitations: mental status not altered HENMT Head: normal to inspection Mouth: moist mucous membranes Resp Effort & Inspection: normal respiratory effort and able to speak in complete sentences Cardio Pulses: normal peripheral pulses GI Palpation: soft Other: laparoscopic trocar insertion sites c/d/i with dermabond in place, no erythema, very mild TTP Other: vaginal packing removed, <25% saturation noted Skin General: no rashes or lesions noted Neuro General: patient alert, patient awake and patient oriented x3 Extrem General: normal to inspection Psych Mental Status: mental status grossly normal Judgment: judgment good Objective Labs 11/17/24 04:18 Labs: Laboratory Results - last 24 hr 11/17/24 04:18 WBC 14.9 H RBC 4.41 Hgb 13.6 Hct 40.5 MCV 92.0 MCH 30.8 MCHC 33.5 RDW 13.3 Plt Count 201 Neut % (Auto) 88.8 H Lymph % (Auto) 4.5 L [place] % (Auto) 6.7 Eos % (Auto) 0.0 L Baso % (Auto) 0.0 Neut # (Auto) 57986 H Lymph # (Auto) 700 L [place] # (Auto) 1000 H Eos # (Auto) 0 Baso # (Auto) 0 PFSH Medical History (Updated 10/14/24 @ 21:31 by Vianney Upton MD) Pelvic pain Dysuria Allergies (~2014) Anxiety (~2019) Headache (~2021) ADHD (~1997) Scoliosis (~2008) Chronic back pain (~2009) Tinnitus Painful menstrual periods (~2007) Ovarian cyst (~2017) Tachycardia (~2014) Fibromyalgia affecting multiple sites (~2022) Generalized anxiety disorder ADHD (attention deficit hyperactivity disorder), combined type Pain due to intrauterine contraceptive device (IUD) Primary dysmenorrhea Abnormal uterine bleeding (AUB) Surgical History (Updated 06/28/24 @ 17:51 by Juliet Phma) Anesthesia History of colonoscopy History of endoscopy History of mastectomy (~2015) Family History (Updated 06/28/24 @ 17:54 by Juliet Pham) Mother Melanoma Mental health problem Brother Mental health problem Grandfather History of heart disease Hyperlipidemia Hypertension Stroke Grandmother Diabetes mellitus Hypertension Grandfather History of heart disease Social History household members: spouse Smoking Status: Former smoker alcohol intake: current Discharge Assessment & Plan Assessment and Plan Assessment: 33yo nulliparous transgendered male POD1 s/p TLH with bilateral salpingectomy postop pain well controlled with minimal PO analgesia, +flatus, tolerating diet, ambulating and voiding independently discharge to home with routine postoperative precautions scheduled f/u in office 2 weeks Discharge Plan Discharge Plan Patient Disposition: Home Provider Discharge Comment: Nothing in the vagina for 6 weeks. You may shower immediately. Tub baths are okay if the tub is cleaned well first; do not submerge incisions for 2 weeks. Discharge orders & Medications Discharge Orders: Discharge (Order); Ordered 11/17/24 Ordered By: Vianney Upton Prescriptions: New oxycodone 5 mg tablet 5 mg PO Q6H PRN (Reason: pain) Qty: 14 0RF ibuprofen 800 mg tablet 800 mg PO Q8H Qty: 30 0RF ondansetron HCl 4 mg tablet 4 mg PO Q6H PRN (Reason: nausea and vomiting) Qty: 30 0RF sennosides [Senna Laxative] 8.6 mg tablet 8.6 mg PO BID PRN (Reason: constipation) Qty: 30 0RF Continued fluticasone propionate [Flonase Allergy Relief] 50 mcg/actuation spray,suspension 1 spray NASAL BID PRN (Reason: Allergy Symptoms) Rx Instructions: administer into each nostril loratadine 10 mg tablet 10 mg PO DAILY PRN (Reason: Allergy Symptoms) gabapentin 300 mg capsule 300 mg PO TID quetiapine 25 mg tablet 25 mg PO ONCE PM testosterone cypionate 200 mg/mL oil 40 mg SUBCUT WEEKLY Rx Instructions: 0.2 mls SQ weekly Discontinued estradiol [Estrace] 0.01 % (0.1 mg/gram) cream 1 appful vaginal DAILY Qty: 42.5 0RF Rx Instructions: for 14 days naproxen 250 mg Tablet 250 mg PO BID PRN (Reason: Pain (Scale Score 4-6)) Follow up/Referrals: Quan Stanford DO [Primary Care Provider] - Diet/Activity/Treatments Diet: Regular Skin/Wound/Dressing Care Report to your healthcare provider any signs of infection, such as:: chills, fever and increased pain Visit Report/Discharge Packet Stand Alone Forms: Patient Portal/API Discharge Data Primary Care Provider: Quan Stanford Attending Provider: Vianney Upton VTE Deep Vein Thrombosis/Pulmonary Embolism Present on Admission: No
[2024-11-17 07:57] VITALS: BP 86/53; PULSE 79; RESP 17; TEMP 36.3; O2SAT 100
--- NOTE | 2024-11-17 10:18 | CM.DANOTE ---
Initial DCP Assessment Visit Note Reviwed EMR and team rounds for pt's medical status and updates. Met with pt and his spouse at bedside to introduce self and role. Pt was found to be alert/oriented, expressing that his pain was well controlled, and was preparing for d/c later this morning. He will call another family member to come and transport them home once the d/c time is more available. He denies any CM d/c assistance/resource needs at this time. Payor: Tierney Cormier Attending: Dr. Upton Pt is a 34 year-old female to male transgender patient who is post-op day 1 from a total hysterectomy and bilateral salpingectomy surgery. He is doing well postoperatively with no complications. Pt has a hx of painful, heavy menstrual cycles secondary to androgen therapy. He will f/u OP with Dr. Upton for post-op check. No further needs are indicated at this time. Discharge Planning/Care Management CM Discharge Assessment Start: 11/17/24 10:12 Freq: Status: Active Protocol: Document 11/17/24 10:12 DPL (Rec: 11/17/24 10:18 DPL [id number]) Discharge Planning Assessment Assigned Pipe Fitter JAVIER Lemon Advance Directives? No History Provided By Patient,Significant Other, Medical Record Has Patient been admitted in last 30 No days? Prior Living Arrangements Apartment/Condo Household Members spouse Type of transporation used prior to Drives own vehicle admit Independent with ADL's Yes Is patient alert and oriented? Yes Comment N/A Caregiver for Another No Comment No anticipated home d/c needs at this time. Barriers to Discharge No Discharge Plan Home Referrals Initiated None needed Whiteboard Updated in Patient Room with Yes name and ext. # of Pipe Fitter Review Status In Process Please Provide Date Initial DC 11/17/24 Assessment Was Performed Pre-Anesthesia Assessment Start: 11/11/24 13:23 Freq: Status: Active Protocol: Document 11/11/24 13:23 LB (Rec: 11/11/24 13:29 LB [id number]) Pre-Anesthesia Assessment PAC Comment 11/11/24 Chart review. Patient Information Reviewed Via Chart Review Comment No recent testing identified. Primary Care Provider Quan Stanford Seen Specialist in Last 12 Months Yes Specialist Seen [employer] Application Developer Primary Language Malay Preferred Language Malay Business Associate Required No Height 152.4 cm Weight 53.07 kg Body Mass Index (BMI) 22.8 Anesthesia Review Requested No Community Advocate No alcohol intake current Smoking Status Former smoker Patient is completely paralyzed or No completely immobile Is patient on oxygen? No Hx Sleep Apnea No Currently Taking a Beta Sukh No Anti-Coagulant Therapy No Cardiac Testing No Hx Pacemaker/ICD No Cardiac Clearance Received Not Applicable Hx Urinary Self Catheterization No Diabetes No Presence of External or Internal Medical No Devices Received a COVID vaccine? Yes Marital Status Lives With spouse Patient Discharge Plan Description Return Home Emergency Contact Name Mary Jane Zarate - Emergency Contact Advance Directives? No
--- NOTE | 2024-11-17 11:25 | PC.NURSE ---
Pt is dressed and ready for discharge home. IV has been removed. Went over d/c instructions with Pt - discussed d/c meds, time of last dose, reviewed stroke education, s/s of infection, drinking plenty of fluids to prevent constipation or dehydration, no driving while taking narcotics and consider a stool softener to prevent constipation. Pt already has a follow up appointment scheduled. Pt denied further questions and will be ready to be taken out via w/c by CARPENTER'S ASSISTANT to POV when his ride arrives.
[2024-11-17 11:57] VITALS: BP 98/64; PULSE 82
== END 2024-11-17 12:33 | disposition home or self-care (01) ==
LOC: OR 06:04 → AC 06:04
PROVIDERS: PCP Family Medicine; Referring Provider Obstetrics & Gynecology; Visit Provider Obstetrics & Gynecology
PROC: 0UT94ZZ Resection of Uterus, Percutaneous Endoscopic Approach (ICD-10-PCS; CPT 58571; principal; 2024-11-16 07:45)
DX: N93.9 Abnormal uterine and vaginal bleeding, unspecified (principal); N94.5 Secondary dysmenorrhea; R10.2 Pelvic and perineal pain; Z90.13 Acquired absence of bilateral breasts and nipples; Z78.9 Other specified health status; N72 Inflammatory disease of cervix uteri; D17.5 Benign lipomatous neoplasm of intra-abdominal organs
CPT/HCPCS: 58571; 36415; 85025; J0171; J1100; J1171; J1885; J2250; J2405; J2704; J2795; J3010; J3490